=== PATIENT | male | born 1955 | race Caucasian/White ===

== ENCOUNTER 2024-02-28 11:08 | Inpatient (IN) ==
[2024-02-28 11:58] LABS: Basophils # (auto) 0.08 K/uL (0.00-0.20); Eosinophils # (auto) 0.16 K/uL (0.00-0.50); Hematocrit (blood only) 41.4 % (42.0-52.0); Hemoglobin 14.9 g/dl (14.0-18.0); Immature Granulocytes # (auto) 0.04 K/uL (0.01-0.20); Immature Granulocytes % (auto) 0.5 %; Lymphocytes # (auto) 1.93 K/uL (1.20-3.40); Lymphocytes % (auto) 24.5 %; Mean Corpuscular Hemoglobin 30.6 pg (25.0-34.0); Mean Platelet Volume 10.8 fL (9.4-12.4); Monocytes # (auto) 0.55 K/uL (0.11-0.59); Neutrophils # (auto) 5.13 K/uL (1.40-6.50); Platelet Count 228 K/uL (130-400); RDW Coefficient of Variation 12.1 % (11.5-14.5); RDW Standard Deviation 37.9 fL (36.4-46.3); Red Blood Count 4.87 M/uL (4.70-6.10); White Blood Count 7.89 K/ul (4.8-10.8)
--- NOTE | 2024-02-28 11:58 | Emergency Department Note ---
History of Present Illness General Chief complaint: Referred by Doctor Stated complaint: HYPERTENSION, BREATHING DIFFICULTY Time Seen by Provider: 02/28/24 11:39 Source: patient, family (Mother is at the bedside), RN notes reviewed and old records reviewed (05/05/19-ER visit for hand pain/injury) Mode of arrival: ambulatory Limitations: no limitations History of Present Illness This patient is a 68-year-old male who was sent from [facility] for cardiac workup. He said he has been having trouble sleeping where he feels like he wakes up and cannot get a deep breath like there is something he needs to cough out. Besides that he is feeling fine. He said that his blood pressure was mildly elevated the 150s there over 100s and he also had some trace lower extreme edema so they were worried about him and wanted a cardiac workup. He said no fall or trauma denies chest pain. No shortness of breath with exception of waking up in the middle night feeling like he needs to take a deep breath going on for couple weeks . no nausea or vomiting. no fever or chills. no blood or melena stool. No abdominal pain. no back pain .no urinary symptoms. Home Medications Medication Instructions Recorded Confirmed Type ibuprofen 200 mg tablet 400 mg PO Q6H PRN Pain 02/28/24 02/28/24 History Allergies Allergy/AdvReac Type Severity Reaction Status Date / Time No Known Allergies Allergy Mild Verified 12/01/15 10:49 Past Med/Surg History Problem List (Updated 03/02/24 @ 11:32 by Martín Najera MD) Hyperglycemia (Acute) Hypertension (Acute) Elevated brain natriuretic peptide (BNP) level (Acute) Elevated d-dimer (Acute) Elevated troponin I level (Acute) SOB (shortness of breath) (Acute) Calcification of coronary artery (Acute) CHF (congestive heart failure) (Acute) Cardiomyopathy LV dysfunction Coronary artery calcification HTN (hypertension) Acute heart failure with reduced ejection fraction (HFrEF, <= 40%) and combined systolic and diastolic dysfunction Tobacco use Orthopnea Pleural effusion Congestive heart failure Right knee DJD Medical History Diabetes mellitus, type II HTN (hypertension) Surgical History History of arthroplasty of knee History of hip replacement History of shoulder surgery Family History Other Prostate cancer Social History (Updated 02/28/24 @ 16:15 by Brooklyn Birmingham PA-C) Smoking Status: Never smoker Tobacco Type: Smokeless Tobacco (Dip or Chew) Hx Alcohol Use: No Hx Substance Use: No Preferred Language: Macanese Communication Ability: Effective Beliefs That Will Affect Care: None Current Living Situation: Alone Other Information That Helps Us Care for You: No Feels Safe at Home: Yes Assistive Devices: None Immunizations: Past medical history he says he is borderline diabetic and was on metformin in the past but ran out and has not been on it since. Denies history of cardiac disease pulmonary disease or blood clots. He has been on lisinopril in the past for blood pressure but stopped taking it as well Allergiesno known drug allergies Medicationnone Social history he lives locally. 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 Does not smoke, drink, or use drugs Review of Systems A total of 10 systems reviewed and were otherwise negative Physical Exam Vital Signs Vital Signs - 24 hr 02/28/24 11:14 02/28/24 13:00 02/28/24 14:11 Temperature 36.8 C Temperature Source Oral Pulse Rate 100 H 89 Pulse Rate [Finger] 92 H Pulse Rhythm Regular Pulse Rhythm [Finger] Regular Pulse Strength Normal Pulse Strength [Finger] Normal Respiratory Rate 18 18 Respiratory Effort / Characteristics Non-Labored Spontaneous Non-Labored Respiratory Depth Normal Normal Respiratory Pattern Regular Regular Blood Pressure 172/109 H Blood Pressure [Right Arm] 159/114 H Blood Pressure Mean 130 Blood Pressure Mean [Right Arm] 129 Blood Pressure Position Sitting Pulse Oximetry 96 98 Oxygen Delivery Method Room Air Room Air Sepsis Recent Fever Within 48 Hours No Sepsis New/Unexplained Change in Mental Status N/A Sepsis Action Taken by Nursing No Action Required General: Well developed well nourished [id number]-deanykhur middle-age male who appears in no acute distress, breathing comfortably on room air. Normal speech HEENT: Normal cephalic atraumatic. Pupils are equal round and reactive to light. Sclera are anicteric. Extraocular movements are intact. Oropharynx is pink with moist mucous membranes. No swelling of the mouth lips or tongue. Neck: Supple with a midline trachea. No meningeal signs or stiffness, no JVD or bruits. No Stridor. Chest: Clear to auscultation bilaterally. No wheezes or rhonchi. No increased work of breathing. Heart: Regular rate and rhythm without murmurs or gallops. Abdomen: Soft nontender, nondistended without rebound guarding or rigidity. Extremities: No cyanosis clubbing or edema. No calf tenderness or assymetry Spine/Back. Non tender to palpation. No CVA tenderness. Trace pedal edema Skin: Good turgor without rashes. Neurologic exam: Cranial nerves two through 12 are intact. Motor and sensation are intact and symmetrical throughout. Course Administered Medications Aspirin (Aspirin 81 Mg Ectab) 81 mg PO QAM [facility] Stop: 03/30/24 11:54 Last Admin: 03/02/24 10:02 Dose: Not Given Documented By: Admin: 03/01/24 08:04 Dose: 81 mg Documented By: Admin: 02/29/24 12:39 Dose: 81 mg Documented By: ADITI Enoxaparin Sodium (Enoxaparin Inj 40 Mg/0.4 Ml Syr) 40 mg SQ Q24H [facility] Stop: 03/29/24 17:59 Last Admin: 03/01/24 17:09 Dose: 40 mg Documented By: Admin: 02/29/24 17:45 Dose: 40 mg Documented By: Admin: 02/28/24 18:15 Dose: Not Given Documented By: ADITI Furosemide (Furosemide Inj 20 Mg/2 Ml Vial) 20 mg IV DAILY [facility] Stop: 03/30/24 08:59 Last Admin: 02/29/24 08:03 Dose: 20 mg Documented By: ADITI Insulin Aspart (Insulin Aspart Per Unit Charge) 0 units SC ACHS [facility] Stop: 03/29/24 17:32 Last Admin: 03/02/24 11:01 Dose: Not Given Documented By: Admin: 03/01/24 20:32 Dose: Not Given Documented By: Admin: 03/01/24 18:04 Dose: 4 units Documented By: ADITI Co-signed By: SANIYA Admin: 03/01/24 12:57 Dose: 7 units Documented By: ADITI Co-signed By: SANIYA Admin: 03/01/24 08:58 Dose: 12 units Documented By: ADITI Co-signed By: SANIYA Admin: 02/29/24 20:05 Dose: 1 units Documented By: JONATHAN Co-signed By: SOFIYA Admin: 02/29/24 17:45 Dose: 3 units Documented By: ADITI Co-signed By: SANIYA Admin: 02/29/24 13:07 Dose: 6 units Documented By: ADITI Co-signed By: SANIYA Admin: 02/29/24 09:16 Dose: 8 units Documented By: ADITI Co-signed By: SANIYA Admin: 02/28/24 20:35 Dose: 3 units Documented By: JOS Co-signed By: JONATHAN Admin: 02/28/24 18:03 Dose: 10 units Documented By: ADITI Co-signed By: KYLER Melatonin (Melatonin 3 Mg Tab) 3 mg PO HS PRN PRN Reason: Sleep Stop: 03/29/24 23:04 Last Admin: 03/01/24 22:04 Dose: 3 mg Documented By: Admin: 02/28/24 23:38 Dose: 3 mg Documented By: JOS Metoprolol Succinate (Metoprolol Succ 25mg Ext Rel Tab) 12.5 mg PO QPM [facility] Stop: 03/30/24 20:59 Last Admin: 03/01/24 20:34 Dose: 12.5 mg Documented By: Admin: 02/29/24 20:04 Dose: 12.5 mg Documented By: JONATHAN Oxycodone HCl (Oxycodone Hcl Ir 5 Mg Tab (Immediate Release)) 5 mg PO Q4H PRN PRN Reason: Pain Stop: 03/14/24 04:06 Last Admin: 03/01/24 22:04 Dose: 5 mg Documented By: Admin: 03/01/24 04:58 Dose: 5 mg Documented By: Admin: 02/29/24 20:05 Dose: 5 mg Documented By: Admin: 02/29/24 09:31 Dose: 5 mg Documented By: Admin: 02/29/24 04:20 Dose: 5 mg Documented By: JOS Polyethylene Glycol (Polyethylene (Miralax) 17 Gm Pack) 17 gm PO DAILY PRN PRN Reason: Constipation Stop: 03/29/24 17:32 Last Admin: 03/01/24 05:05 Dose: 17 gm Documented By: JONATHAN Rosuvastatin Calcium (Rosuvastatin Calcium 20 Mg Tab) 20 mg PO QAM [facility] Stop: 03/30/24 11:59 Last Admin: 03/02/24 10:41 Dose: 20 mg Documented By: Admin: 03/01/24 08:04 Dose: 20 mg Documented By: Admin: 02/29/24 12:39 Dose: 20 mg Documented By: ADITI Spironolactone (Spironolactone 12.5 Mg Tab) 12.5 mg PO DAILY [facility] Stop: 03/30/24 11:59 Last Admin: 03/02/24 10:41 Dose: 12.5 mg Documented By: Admin: 03/01/24 08:04 Dose: 12.5 mg Documented By: Admin: 02/29/24 12:39 Dose: 12.5 mg Documented By: ADITI Discontinued Medications Aspirin (Aspirin 81 Mg Chew) Confirm Administered Dose 81 mg .ROUTE .STK-MED ONE Stop: 03/02/24 08:24 Last Admin: 03/02/24 10:02 Dose: Not Given Documented By: ANUPAMA Fentanyl Citrate (Fentanyl Citrate Pf 100 Mcg/2 Ml Vial) Confirm Administered Dose 100 mcg .ROUTE .STK-MED ONE Stop: 03/02/24 07:01 Last Increment: 03/02/24 09:03 Dose: 75 mcg Documented By: GALLO Furosemide (Furosemide Inj 20 Mg/2 Ml Vial) 20 mg IV ONE ONE Stop: 02/28/24 14:19 Last Admin: 02/28/24 14:30 Dose: 20 mg Documented By: EL Heparin Sodium (Porcine) (Heparin (Porcine) 1000 Unit/Ml 10 Ml (Igniter Capper Use Only)) Confirm Administered Dose 10,000 units .ROUTE .STK-MED ONE Stop: 03/02/24 07:01 Last Admin: 03/02/24 09:03 Dose: 5,000 units Documented By: GALLO Heparin Sodium/Sodium Chloride (Heparin In Nss Infusion 1000 Unit/500 Ml (2 U/Ml) Bag) Confirm Administered Dose 3,000 units IV .STK-MED ONE Stop: 03/02/24 07:02 Last Admin: 03/02/24 09:04 Dose: 3,000 units Documented By: YAEL Magnesium Sulfate/Dextrose (Magnesium Sulfate / D5w) 1 gm in 100 mls @ 50 mls/hr IV ONE ONE Stop: 02/28/24 18:27 Last Infusion: 02/28/24 19:32 Dose: Infused Documented By: Admin: 02/28/24 16:40 Dose: 50 mls/hr Documented By: LETY Magnesium Sulfate/Dextrose (Magnesium Sulfate / D5w) 1 gm in 100 mls @ 50 mls/hr IV ONE ONE Stop: 02/29/24 05:14 Last Infusion: 02/29/24 05:52 Dose: Infused Documented By: Admin: 02/29/24 03:17 Dose: 50 mls/hr Documented By: JOS Insulin Aspart (Insulin Aspart Per Unit Charge) 0 units SC 0000,0400 [facility] Stop: 02/29/24 04:01 Last Admin: 02/29/24 04:02 Dose: 4 units Documented By: JOS Co-signed By: KAYLI Admin: 02/28/24 23:38 Dose: 2 units Documented By: JOS Co-signed By: SOFIYA Insulin Glargine (Lantus Per Unit Charge) 10 units SQ BID [facility] Stop: 03/29/24 20:59 Last Admin: 02/28/24 20:35 Dose: 10 units Documented By: JOS Co-signed By: JONATHAN [facility]ulin Glargine (Lantus Per Unit Charge) [facility] [place]: 03/30/24 08:59 Last Admin: 02/29/24 09:16 Dose: 20 units Documented By: ADITI Co-signed By: SANIYA Insulin Glargine (Lantus Per Unit Charge) 25 units SC QAM [facility] Stop: 03/31/24 08:59 Last Admin: 03/01/24 08:59 Dose: 25 units Documented By: ADITI Co-signed By: SANIYA Insulin Glargine (Lantus Per Unit Charge) 18 units SC 0800 ONE Stop: 03/02/24 08:01 Last Admin: 03/02/24 10:34 Dose: Not Given Documented By: ANUPAMA Insulin Glargine (Lantus Per Unit Charge) 18 units SC NOW STA Stop: 03/02/24 10:33 Last Admin: 03/02/24 11:04 Dose: Not Given Documented By: ANUPAMA Insulin Glargine (Lantus Per Unit Charge) 18 units SC NOW STA Stop: 03/02/24 11:02 Last Admin: 03/02/24 11:04 Dose: 18 units Documented By: ANUPAMA Co-signed By: DARNELL Ioversol (Optiray 320 125ml) 118 ml IV ONCE ONE Stop: 02/28/24 13:23 Last Admin: 02/28/24 13:23 Dose: 118 ml Documented By: SHAWN Ioversol (Optiray 350) Confirm Administered Dose 1 ml .ROUTE .STK-MED ONE Stop: 03/02/24 07:02 Last Admin: 03/02/24 09:04 Dose: 85 ml Documented By: YAEL Lisinopril (Lisinopril 10 Mg Tab) 10 mg PO NOW ONE Stop: 02/28/24 16:32 Last Admin: 02/28/24 18:19 Dose: 10 mg Documented By: ADITI Lisinopril (Lisinopril 10 Mg Tab) [facility] [place]: 03/30/24 08:59 Last Admin: 03/02/24 10:41 Dose: 10 mg Documented By: Admin: 03/01/24 08:04 Dose: 10 mg Documented By: Admin: 02/29/24 08:02 Dose: 10 mg Documented By: ADITI Metoprolol Tartrate (Metoprolol Tartrate 25 Mg Tab) 12.5 mg PO NOW STA Stop: 03/01/24 05:40 Last Admin: 03/01/24 06:12 Dose: 12.5 mg Documented By: JONATHAN Midazolam HCl (Midazolam Hcl 1 Mg/Ml 2ml Vial) Confirm Administered Dose 2 mg .ROUTE .STK-MED ONE Stop: 03/02/24 07:01 Last Admin: 03/02/24 09:04 Dose: 2 mg Documented By: GALLO Nicardipine HCl (Nicardipine Hcl Inj 2.5 Mg/Ml 10 Ml Amp) Confirm Administered Dose 25 mg .ROUTE .STK-MED ONE Stop: 03/02/24 07:01 Last Admin: 03/02/24 09:04 Dose: 25 mg Documented By: YAEL Nitroglycerin/Dextrose (Nitroglycerin/D5w 100mcg/Ml 20ml Syr) Confirm Administered Dose 2,000 mcg .ROUTE .STK-MED ONE Stop: 03/02/24 07:02 Last Admin: 03/02/24 09:05 Dose: 2,000 mcg Documented By: YAEL Potassium Chloride (Potassium Chloride Crtab 20 Meq Tabcr) 20 meq PO QAM [facility] Stop: 03/29/24 16:14 Last Admin: 02/28/24 16:17 Dose: 20 meq Documented By: LETY Potassium Chloride (Potassium Chloride Crtab 20 Meq Tabcr) 20 meq PO QAM [facility] Stop: 03/30/24 08:59 Last Admin: 02/29/24 08:02 Dose: 20 meq Documented By: ADITI Potassium Chloride (Potassium Chloride Crtab 20 Meq Tabcr) 20 meq PO NOW STA Stop: 02/29/24 03:11 Last Admin: 02/29/24 03:18 Dose: 20 meq Documented By: JOS Potassium Chloride (Potassium Chloride Crtab 20 Meq Tabcr) 20 meq PO QAM [facility] Stop: 03/31/24 05:39 Last Admin: 03/01/24 08:04 Dose: 20 meq Documented By: Admin: 03/01/24 06:12 Dose: 20 meq Documented By: JONATHAN Medical Decision Making Differential Diagnosis Acute coronary syndrome, arrhythmia, CHF, PE, pneumothorax, hypertensive urgency or emergency, diabetic emergency, dehydration, electrolyte or metabolic abnormality Medical Records Attestation: I reviewed the patient's medical records. Home Medications Current Medication List: was personally reviewed by me Laboratory Data Attestation: I reviewed the patient's lab results. 03/01/24 05:27 03/02/24 06:18 Lab Results 02/28/24 02/28/24 02/28/24 Range/Units 11:31 12:15 13:14 WBC 7.89 (4.8-10.8) K/ul RBC 4.87 (4.70-6.10) M/uL Hgb 14.9 (14.0-18.0) g/dl Hct 41.4 L (42.0-52.0) % MCV 85.0 (80.0-100.0) fL MCH 30.6 (25.0-34.0) pg MCHC 36.0 (32.0-36.0) g/dL RDW Std Deviation 37.9 (36.4-46.3) fL RDW Coeff of Barney 12.1 (11.5-14.5) % Plt Count 228 (130-400) K/uL MPV 10.8 (9.4-12.4) fL Immature Gran % (Auto) 0.5 % Neut % (Auto) 65.0 % Lymph % (Auto) 24.5 % Taney % (Auto) 7.0 % Eos % (Auto) 2.0 % Baso % (Auto) 1.0 % Neut # (Auto) 5.13 (1.40-6.50) K/uL Lymph # (Auto) 1.93 (1.20-3.40) K/uL Taney # (Auto) 0.55 (0.11-0.59) K/uL Eos # (Auto) 0.16 (0.00-0.50) K/uL Baso # (Auto) 0.08 (0.00-0.20) K/uL Immature Gran # (Auto) 0.04 (0.01-0.20) K/uL D-Dimer 520 H* (0-500) ug/L FEU Sodium 133 L (136-145) mmol/L Potassium 4.3 (3.5-5.1) mmol/L Chloride 98 (98-107) mmol/L Carbon Dioxide 28 (21-32) mmol/L Anion Gap 7 (3-11) BUN 12 (6-23) mg/dl Creatinine 1.00 (0.6-1.4) mg/dl Est Cr Clr Drug Dosing 75.3 ml/min eGFR 81.98 BUN/Creatinine Ratio 12.0 (10-20) Glucose 397 H* (70-99(Fasting)) mg/dl Calcium 9.5 (8.6-10.3) mg/dl Magnesium 1.7 (1.7-2.4) mg/dl Total Bilirubin 0.8 (0.2-1.0) mg/dl AST 30 (13-39) U/L ALT 43 (7-52) U/L Alkaline Phosphatase 53 (34-104) U/L Troponin I High Sens 37.7 H 35.8 H (0-20) pg/ml B-Natriuretic Peptide 875 H (0-100) pg/ml Total Protein 7.1 (6.0-8.3) gm/dl Albumin 4.4 (3.4-5.0) gm/dl Globulin 2.7 (2.5-4.0) gm/dl Albumin/Globulin Ratio 1.6 (0.9-2) Urine Color Yellow Urine Appearance Clear (Clear) Urine pH 5.5 (4.5-7.5) Ur Specific Globe 1.039 H (1.000-1.030) Urine Protein 1+ H (Negative) Urine Glucose (UA) 3+ H (Negative) Urine Ketones Negative (Negative) Urine Blood Negative (Negative) Urine Nitrite Negative (Negative) Urine Bilirubin Negative (Negative) Urine Urobilinogen Negative (Negative) Ur Leukocyte Esterase Negative (Negative) Urine WBC (Auto) 0-5 (0-5) /hpf Urine RBC (Auto) 0-2 (0-2) /hpf U Hyaline Cast (Auto) 0-2 (0-2) /lpf U Epithel Cells (Auto) 0-2 (0-2) /hpf Urine Bacteria (Auto) None Seen (None Seen) Imaging Data Attestation: I personally reviewed and interpreted this imaging study as follows: My Impression: Chest x-ray-no acute infiltrate, failure, pneumothorax seen Radiologist's Impression: Chest X-Ray 02/28/24 11:21 SINGLE VIEW CHEST CLINICAL HISTORY: Dyspnea FINDINGS: A PA chest radiograph is compared to study dated 11/08/2015. The cardiomediastinal silhouette is top normal for projection noting atherosclerotic calcification of the thoracic aorta. The lungs and pleural spaces are clear. No pneumothorax is seen. The bony thorax is grossly intact. Degenerative change is noted in the shoulders and spine. IMPRESSION: No active disease in the chest. ACT 112: Negative or not required by law. Electronically signed by: Jay House M.D. 02/28/2024 1:03 PM Chest CTA 02/28/24 12:46 CT ANGIOGRAPHY OF THE CHEST, PULMONARY EMBOLUS PROTOCOL CLINICAL HISTORY: Dyspnea. Evaluate for pulmonary embolus. COMPARISON STUDY: Chest radiograph November 08, 2015 and chest radiograph performed earlier today. TECHNIQUE: Following IV administration of 118 mL of Optiray, helical axial images of the chest were obtained utilizing the pulmonary embolus protocol. Maximal intensity projections and sagittal and coronal reformats were viewed on an independent 3D workstation. IV contrast was administered without complication. Automated exposure control was utilized for the study. A dose lowering technique was utilized adhering to the principles of ALARA. CT DOSE: 777.47 mGy.cm FINDINGS: No pulmonary emboli are identified. The heart is mildly enlarged. There is moderate coronary artery calcification. No pericardial effusion. There are small bilateral pleural effusions. There is no pneumothorax. Interlobular septal thickening is present. There is no consolidation to suggest pneumonia. There are no suspicious nodules. Several hypodense hepatic lesions favor cysts. There are gallstones within the gallbladder. There are prominent mediastinal and bilateral hilar lymph nodes. IMPRESSION: 1. No pulmonary emboli identified. 2. Cardiomegaly with mild interstitial pulmonary edema and small bilateral pleural effusions. 3. No consolidation to suggest pneumonia. 4. Moderate coronary artery calcification. ACT 112: Negative or not required by law. Electronically signed by: Kishor Hensley M.D. 02/28/2024 2:01 PM ECG Data Attestation: I personally reviewed and interpreted this ECG as follows: Indication: + chest pain Rate (beats per minute): 98 Rhythm: + normal sinus ECG Intervals/blocks: + Incomplete right bundle branch block, + Normal QT and + Normal NH ECG [place]: + Normal ECG ST segments: + Normal ST segments ECG Findings: + Other (Nonspecific T wave abnormality); no PACs or no PVCs Comparison ECG Date: from (03/23/2020) Change: no significant change MDM Narrative This patient comes in as described above. I did see him out in triage to help expedite his care. Sent over cardiac workup his EKG shows no definite ischemic changes. He has some nonspecific T wave abnormalities no old EKG available for comparison. His blood pressure was elevated initially 172/109 sounds like he does have history of hypertension but is no longer on any medications. Chest x- ray and multiple blood testing was obtained as well as urinalysis and a D-dimer. His D-dimer was mildly elevated at [address] angiography was obtained there is no evidence of PE however it does look like he is fluid overloaded and has cardiac calcifications and I am worried about a CHF component particularly in light of the fact that his BNP and troponin are also elevated. He has no chest pain and is asymptomatic at present. The second troponin was trended and was not going upward but I do think the patient likely has a CHF component he was given IV Lasix. This apparently is new onset CHF. he also has hypertension and hyperglycemia but has stopped taking his medications in the past for these. He has no evidence discussed DKA. I do think he needs to get restarted back on these medications and have further cardiac evaluation including echo in the hospital. I have consulted the [facility] hospitalist team for these measures. The patient is family are in agreement the plan. Continuous service station attendant: Orders placed in EMR for continuous service station attendant: Upon my evaluation patient to be normal sinus rhythm with a rate of 70 Impression & Plan CHF (congestive heart failure), Calcification of coronary artery, SOB (shortness of breath), Elevated troponin I level, Elevated d-dimer, Elevated brain natriuretic peptide (BNP) level, Hypertension, Hyperglycemia Discharge Plan Visit Data Chief Complaint: Referred by Doctor Stated Complaint: HYPERTENSION, BREATHING DIFFICULTY ED Provider: Martín Najera Discharge Problem: CHF (congestive heart failure), Calcification of coronary artery, SOB (shortness of breath), Elevated troponin I level, Elevated d-dimer, Elevated brain natriuretic peptide (BNP) level, Hypertension, Hyperglycemia Patient Disposition: Admitted As Inpatient Discharge Instructions Interventions: ED Discharge Assessment Last Done: 02/28/24 17:13 Discharge Problem: CHF (congestive heart failure) Qualifiers: Heart failure type: systolic Heart failure chronicity: acute Qualified Code(s): I50.21 - Acute systolic (congestive) heart failure Hypertension Qualifiers: Hypertension type: unspecified Qualified Code(s): I10 - Essential (primary) hypertension
[2024-02-28 12:10] LABS: Albumin Globulin Ratio 1.6 (0.9-2); Albumin Level 4.4 gm/dl (3.4-5.0); Bilirubin,Total 0.8 mg/dl (0.2-1.0); Calcium 9.5 mg/dl (8.6-10.3); Creatinine Clr Calc Pharmacy 75.3 ml/min; Globulin 2.7 gm/dl (2.5-4.0); Potassium 4.3 mmol/L (3.5-5.1); Total Protein 7.1 gm/dl (6.0-8.3)
[2024-02-28 12:34] LABS: Troponin I High Sensitivity 37.7 pg/ml (0-20)
[2024-02-28 12:42] LABS: Appearance Urine Clear (Clear); Bacteria Urine Automated None Seen (None Seen); Bilirubin Urine Negative (Negative); Blood Urine Negative (Negative); Cast Urine Automated 0-2 /lpf (0-2); Color Urine Yellow; Epithelial Cell Urine Auto 0-2 /hpf (0-2); Glucose Urine UA 3+ (Negative); Ketones Urine Negative (Negative); Leukocyte Esterase Urine Negative (Negative); Nitrite Urine Negative (Negative); Protein Urine 1+ (Negative); RBC Urine Automated 0-2 /hpf (0-2); Specific Gravity Urine 1.039 (1.000-1.030); Urobilinogen Urine Negative (Negative); WBC Urine Automated 0-5 /hpf (0-5); pH Urine 5.5 (4.5-7.5)
[2024-02-28 12:45] LABS: D Dimer 520 ug/L FEU (0-500)
--- NOTE | 2024-02-28 13:04 | XRay Report ---
SINGLE VIEW CHEST CLINICAL HISTORY: Dyspnea FINDINGS: A PA chest radiograph is compared to study dated 11/08/2015. The cardiomediastinal silhouett e is top normal for projection noting atherosclerotic calcification of the thoracic aorta. The lungs and pleural spaces are clear. No pneumothorax is seen. The bony thorax is grossly intact. Degenerativ e change is noted in the shoulders and spine. IMPRESSION: No active disease in the chest. ACT 112: Negative or not required by law. Electronically signed by: Jay House M.D. 02/28/2024 1:03 PM
[2024-02-28] MEDS: OPTIRAY 320 125ml IV ONE (13:23)
[2024-02-28 13:55] LABS: Troponin I High Sensitivity 35.8 pg/ml (0-20)
--- NOTE | 2024-02-28 14:03 | CT Scan Report ---
CT ANGIOGRAPHY OF THE CHEST, PULMONARY EMBOLUS PROTOCOL CLINICAL HISTORY: Dyspnea. Evaluate for pulmonary embolus. COMPARISON STUDY: Chest radiograph November 08, 2015 and chest radiograph performed earlier today. TECHNIQUE: Following IV administration of 118 mL of Optiray, helical axial images of the chest were o btained utilizing the pulmonary embolus protocol. Maximal intensity projections and sagittal and cor onal reformats were viewed on an independent 3D workstation. IV contrast was administered without co mplication. Automated exposure control was utilized for the study. A dose lowering technique was ut ilized adhering to the principles of ALARA. CT DOSE: 777.47 mGy.cm FINDINGS: No pulmonary emboli are identified. The heart is mildly enlarged. There is moderate sagastume ry artery calcification. No pericardial effusion. There are small bilateral pleural effusions. There is no pneumothorax. Interlobular septal thickening is present. There is no consolidation to suggest p neumonia. There are no suspicious nodules. Several hypodense hepatic lesions favor cysts. There are g allstones within the gallbladder. There are prominent mediastinal and bilateral hilar lymph nodes. IMPRESSION: 1. No pulmonary emboli identified. 2. Cardiomegaly with mild interstitial pulmonary edema and small bilateral pleural effusions. 3. No consolidation to suggest pneumonia. 4. Moderate coronary artery calcification. ACT 112: Negative or not required by law. Electronically signed by: Kishor Hensley M.D. 02/28/2024 2:01 PM
--- NOTE | 2024-02-28 14:28 | History & Physical Report ---
Date of Service February 28, 2024 Assessment & Plan (1) Congestive heart failure: (2) Orthopnea: (3) Pleural effusion: Plan: Patient is 68 year old male with PMH untreated HTN and DM II presented to ER for orthopnea x 2-3 weeks. In ER patient afebrile, P: 100, R: 18, BP 172/109, 96% on room air D-dimer: 520, BNP: 875 Troponin: 37 --> 35 EKG sinus rhythm incomplete bundle branch block, nonspecific t wave changes inferior leads per my interpretation CXR: no infiltrate noted per my interpretation CTA chest: No pulmonary emboli identified. Cardiomegaly with mild interstitial pulmonary edema and small bilateral pleural effusions.. No consolidation to suggest pneumonia. Moderate coronary artery calcification. In ER given 20 mg IV Lasix. Patient has since been diuresing. First urination not measured, second urination nearly 700 mL urine output Since IV Lasix given and is diuresing patient now reporting feeling much better and is able to lie nearly supine without orthopnea Plan Lasix 20 mg IV daily with patient's brisk response in ER Monitor I's and O's, daily weight, low-sodium diet Echo Trend troponin EKG in am CBC, BMP, magnesium level in a.m. 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 See addendum I spent a total of 76 minutes reviewing notes, outpatient records, labs, medication, coordinating, documenting and providing care for this patient excluding time spent in the performance of separately billed services. History of Present Illness Chief Complaint: Referred by PCP for orthopnea Primary Care Provider: Mayi Jovel MD Patient is 68 year old male with PMH untreated HTN and DM II presented to ER for orthopnea x 2-3 weeks. History obtained from patint and outpatient chart review. Patient reports past 2-3 weeks been having orthopnea and PND. States sometimes wakes up from sleep with nonproductive cough as well. He noted very slight edema BLE. Denies dyspnea or CP or exertional CP. Has not followed with PCP for many years and has been without medications. Previously was on metformin and lisinopril. Patient reestablished with [facility] PCP today and was evaluated in clinic and was noted to have BP 158/112, P: 98, 97% on room air and was recommended ER for further evaluation. States sometimes will have one loose BM but is not consistent. Reports chronic shoulder, back and knee pain and uses OTC ibuprofen 3-5 days a week using 2-3 doses a day. Denies fever/chills, diaphoresis, N/V/C, melena, CLARKE, dizziness, syncope, vision changes, neck pain, CP, palpitations, cough, sore throat, otalgia, rhinorrhea, abdominal pain, paresthesias, weakness, rashes, urinary symptoms. Allergies Allergy/AdvReac Type Severity Reaction Status Date / Time No Known Allergies Allergy Mild Verified 12/01/15 10:49 Home Medications Medication Instructions Recorded Confirmed Type ibuprofen 200 mg tablet 400 mg PO Q6H PRN Pain 02/28/24 02/28/24 History Past Med/Surg History Problem List Tobacco use Orthopnea Pleural effusion Congestive heart failure Right knee DJD Medical History Diabetes mellitus, type II HTN (hypertension) Surgical History History of arthroplasty of knee History of hip replacement History of shoulder surgery Family History Other Prostate cancer Social History (Updated 02/28/24 @ 16:15 by Brooklyn Birmingham PA-C) Smoking Status: Never smoker Tobacco Type: Smokeless Tobacco (Dip or Chew) Hx Alcohol Use: No Hx Substance Use: No Preferred Language: Bulgarian Communication Ability: Effective Beliefs That Will Affect Care: None Current Living Situation: Alone Other Information That Helps Us Care for You: No Feels Safe at Home: Yes Assistive Devices: None Review of Systems Review of Systems: All systems reviewed & are unremarkable except as noted in HPI & below Physical Exam Physical Exam: General: no distress, WDWN Head: normocephalic, atraumatic Eyes: conjunctiva non-injected, anicteric ENT: normal inspection external ears, nose, mucous membranes moist Neck: supple, trachea midline, non-tender Lungs: no respiratory distress, 97% on RA, slightly diminished bases bilaterally, no wheezing/rhonchi/rales CV: RRR, no murmur, trace pretibial edema Abd: normal BS, soft, non-tender Ext: no cyanosis, no calf tenderness Neuro: A&O x 3, no focal deficits noted, normal affect Skin: warm, dry Results & Data Results & Data Vital Signs (Past 12 Hours) Vital Signs Temp Pulse Pulse Resp BP BP Pulse Ox 02/28/24 14:11 89 02/28/24 13:00 92 H 18 159/114 H 98 02/28/24 11:14 36.8 C 100 H 18 172/109 H 96 O2 Del Method 02/28/24 14:11 02/28/24 13:00 Room Air 02/28/24 11:14 Room Air Laboratory Results Short CBC 02/28/24 Range/Units 11:31 WBC 7.89 (4.8-10.8) K/ul Hgb 14.9 (14.0-18.0) g/dl Hct 41.4 L (42.0-52.0) % Plt Count 228 (130-400) K/uL BMP 02/28/24 11:31 Sodium 133 L Potassium 4.3 Chloride 98 Carbon Dioxide 28 BUN 12 Creatinine 1.00 Glucose 397 H* Calcium 9.5 Liver Function 02/28/24 Range/Units 11:31 Total Bilirubin 0.8 (0.2-1.0) mg/dl AST 30 (13-39) U/L ALT 43 (7-52) U/L Alkaline Phosphatase 53 (34-104) U/L Albumin 4.4 (3.4-5.0) gm/dl Urine 02/28/24 Range/Units 12:15 Urine Color Yellow Urine Appearance Clear (Clear) Urine pH 5.5 (4.5-7.5) Ur Specific [place] 1.039 H (1.000-1.030) Urine Protein 1+ H (Negative) Urine Glucose (UA) 3+ H (Negative) Diagnostic Findings Chest X-Ray 02/28/24 11:21 SINGLE VIEW CHEST CLINICAL HISTORY: Dyspnea FINDINGS: A PA chest radiograph is compared to study dated 11/08/2015. The cardiomediastinal silhouette is top normal for projection noting atherosclerotic calcification of the thoracic aorta. The lungs and pleural spaces are clear. No pneumothorax is seen. The bony thorax is grossly intact. Degenerative change is noted in the shoulders and spine. IMPRESSION: No active disease in the chest. ACT 112: Negative or not required by law. Electronically signed by: Jay House M.D. 02/28/2024 1:03 PM Chest CTA 02/28/24 12:46 CT ANGIOGRAPHY OF THE CHEST, PULMONARY EMBOLUS PROTOCOL CLINICAL HISTORY: Dyspnea. Evaluate for pulmonary embolus. COMPARISON STUDY: Chest radiograph November 08, 2015 and chest radiograph performed earlier today. TECHNIQUE: Following IV administration of 118 mL of Optiray, helical axial images of the chest were obtained utilizing the pulmonary embolus protocol. Maximal intensity projections and sagittal and coronal reformats were viewed on an independent 3D workstation. IV contrast was administered without complication. Automated exposure control was utilized for the study. A dose lowering technique was utilized adhering to the principles of ALARA. CT DOSE: 777.47 mGy.cm FINDINGS: No pulmonary emboli are identified. The heart is mildly enlarged. There is moderate coronary artery calcification. No pericardial effusion. There are small bilateral pleural effusions. There is no pneumothorax. Interlobular septal thickening is present. There is no consolidation to suggest pneumonia. There are no suspicious nodules. Several hypodense hepatic lesions favor cysts. There are gallstones within the gallbladder. There are prominent mediastinal and bilateral hilar lymph nodes. IMPRESSION: 1. No pulmonary emboli identified. 2. Cardiomegaly with mild interstitial pulmonary edema and small bilateral pleural effusions. 3. No consolidation to suggest pneumonia. 4. Moderate coronary artery calcification. ACT 112: Negative or not required by law. Electronically signed by: Kishor Hensley M.D. 02/28/2024 2:01 PM Supervising Physician Co-Signing Physician Notes Attending Addendum: Case reviewed with the advanced practitioner. I have personally performed a history and physical examination on the patient. I have reviewed the advanced practitioner's documentation on the date of service referenced in note, and I agree with, and take responsibility for the plan of care. please refer to her notes for full details patient seen and examined, records reviewed by myself as well on exam, patient seen resting in bed, not in distress states breathing has improved no chest pain, cough, dizziness reports R upper leg cramp no other symptoms VS noted and reviewed oriented x 3, not in distress, speaks in sentences with no effort nor accessory muscle use normal rate, regular rhythm, no murmurs clear breath sounds bilaterally non distended, soft, nontender no bipedal edema, erythema, warmth no neuro deficits all labs, imaging noted and reviewed ASSESSMENT AND PLAN> SHORTNESS OF BREATH, PULMONARY EDEMA POSSIBLE ACUTE CONGESTIVE HEART FAILURE EXACERBATION no previous history of CHF Lasix IV ordered Echo ordered UNCONTROLLED HYPERTENSION was on Lisinopril previously, but has been taken off few years ago resume Lisinopril for now monitor other diagnoses and plan of care as per advanced practitioner's notes Jase Springer MD
[2024-02-28] MEDS: FUROSEMIDE INJ 20 MG/2 ML VIAL IV ONE (14:30)
[2024-02-28 16:02] LABS: Magnesium 1.7 mg/dl (1.7-2.4)
[2024-02-28] MEDS: POTASSIUM CHLORIDE CRTAB 20 MEQ TABCR PO SCH (16:17)
[2024-02-28] MEDS: MAGNESIUM SULFATE / D5W 1 GM/100 ML BAG IV ONE (16:40)
[2024-02-28] MEDS ORDERED: PHARMACY GLYCEMIC MGMT CONSULT PRN (17:33)
[2024-02-28] MEDS ORDERED: ACETAMINOPHEN 325 MG TAB PO PRN (17:33)
[2024-02-28] MEDS ORDERED: GLUCOSE 40% GEL 15 GM TUBE PO PRN (17:33)
[2024-02-28] MEDS ORDERED: DEXTROSE 50% 50 ML SYRINGE IV PRN (17:33)
[2024-02-28] MEDS ORDERED: GLUCOSE 10 TAB/TUBE PO PRN (17:33)
[2024-02-28] MEDS ORDERED: GLUCAGON FOR INJ 1 MG VIAL SQ PRN (17:33)
[2024-02-28] MEDS ORDERED: CARBOHYDRATES FOR HYPOGLYCEMIA PO PRN (17:33)
[2024-02-28] MEDS ORDERED: ONDANSETRON INJ 2 MG/ML 2 ML VIAL IV PRN (17:33)
[2024-02-28] MEDS: INSULIN ASPART PER UNIT CHARGE SC SCH ×2 (18:03→23:38)
[2024-02-28] MEDS: ENOXAPARIN INJ 40 MG/0.4 ML SYR SQ SCH (18:15)
[2024-02-28] MEDS: lisinopril 10 MG TAB PO ONE (18:19)
--- NOTE | 2024-02-28 18:41 | Electrocardiogram Report ---
Test Reason : Blood Pressure : */* mmHG Vent. Rate : 98 BPM Atrial Rate : 98 BPM P-R Int : 178 ms QRS Dur : 106 ms QT Int : 382 ms P-R-T Axes : -14 -5 -4 degrees QTcB Int : 487 ms Normal sinus rhythm Nonspecific T wave abnormality Abnormal ECG When compared with ECG of 23-Jun-2019 08:18, Premature ventricular complexes are no longer Present Confirmed by Uriel Brown ([id number]) on 02/28/2024 6:40:48 PM Referred By: Confirmed By: Uriel Brown
[2024-02-28] MEDS: LANTUS PER UNIT CHARGE SQ SCH (20:35)
[2024-02-28] MEDS: MELATONIN 3 MG TAB PO PRN (23:38)
[2024-02-29 01:52] LABS: Basophils # (auto) 0.09 K/uL (0.00-0.20); Basophils % (auto) 1.1 %; Eosinophils # (auto) 0.22 K/uL (0.00-0.50); Eosinophils % (auto) 2.7 %; Hematocrit (blood only) 41.3 % (42.0-52.0); Hemoglobin 14.4 g/dl (14.0-18.0); Immature Granulocytes # (auto) 0.02 K/uL (0.01-0.20); Immature Granulocytes % (auto) 0.2 %; Lymphocytes # (auto) 2.33 K/uL (1.20-3.40); Mean Corpuscular Hemoglobin 30.1 pg (25.0-34.0); Mean Corpuscular Hgb Conc 34.9 g/dL (32.0-36.0); Mean Corpuscular Volume 86.2 fL (80.0-100.0); Mean Platelet Volume 10.4 fL (9.4-12.4); Monocytes # (auto) 0.56 K/uL (0.11-0.59); Neutrophils # (auto) 4.81 K/uL (1.40-6.50); Platelet Count 223 K/uL (130-400); RDW Coefficient of Variation 12.1 % (11.5-14.5); RDW Standard Deviation 38.3 fL (36.4-46.3); Red Blood Count 4.79 M/uL (4.70-6.10); White Blood Count 8.03 K/ul (4.8-10.8)
[2024-02-29 02:10] LABS: BUN Creatinine Ratio 14.3 (10-20); Calcium 8.9 mg/dl (8.6-10.3); Creatinine Clr Calc Pharmacy 71.7 ml/min; Magnesium 1.9 mg/dl (1.7-2.4); Potassium 3.9 mmol/L (3.5-5.1)
[2024-02-29] MEDS: MAGNESIUM SULFATE / D5W 1 GM/100 ML BAG IV ONE (03:17)
[2024-02-29] MEDS: POTASSIUM CHLORIDE CRTAB 20 MEQ TABCR PO STA (03:18)
--- OUTSIDE RECORDS SUMMARY | 2024-02-29 03:27 | External Medical Summary | Summary of Care ---
Author Name Unknown Organization [facility] Address [address] [facility] [place] [address] Phone [phone] Care Team Providers Care Business Process Expert Name Role Phone Unavailable Primary Care Provider Unavailabl e Reason for Visit * Reason Comments Acute Congestion Encounter Details Date Type Department Care Team (Late st Contact Info) Description 02/28/2024 9:40 AM EDT Office Visit General Internal Medicine [place] [address] [facility] [place] [address] Mayi Jovel MD [address] [facility] [place] [id number] Chest congestion*; FERGUSON (dyspnea on exertion); Hypertensive urgency; Abnormal EKG Allergies Active Allergy Reactions Criticality Noted Date Comments No Known Drug Allergy 04/19/2004 documented as of this encounter (statuses as of 02/28/2024) Medications Medication Sig Dispensed Refills Start Date End Date Status Multiple Vitamins-Minerals (ULTRA MENS PACK) MISC Take 2 Tabs by mouth daily. Active Mag Aspart-Potassium Aspart (RA POTASSIUM/MAGNESIUM ) 250-250 MG CAPSIndications:OTC takes as needed when feels muscles might cramp after alot of sweating. Take 2 Tabs by mouth daily. Indications: OTC takes as needed when feels muscles might cramp after alot of sweating. Active Gymnema Sylvestris [place] POWD Use as directed. Active Glucosamine-Chondro it-Vit C-Mn (GLUCOSAMINE CHONDR 500 COMPLEX) Capsule Take 1 Capsule by mouth in the morning. Active celecoxib (CELEBREX) 200 MG Capsule TAKE ONE CAPSULE BY MOUTH EVERY DAY 90 Cap 1 06/02/2018 02/28/2024 Discontinued (Patient preference/d iscontinuati on) lisinopril (PRINIVIL) 10 MG TabletIndications:E ssential hypertension with goal blood pressure less than 140/90 TAKE ONE TABLET BY MOUTH EVERY DAY 90 Tab 3 06/17/2018 02/28/2024 Discontinued (Patient preference/d iscontinuati on) MetFORMIN (GLUCOPHAGE) 1000 MG Tablet TAKE ONE TABLET BY MOUTH TWICE A DAY WITH MORNING AND EVENING MEALS 180 Tab 3 06/17/2018 02/28/2024 Discontinued (Patient preference/d iscontinuati on) documented as of this encounter (statuses as of 02/28/2024) Active Problems Problem Noted Date Diagnosed Date Type 2 diabetes mellitus wit h hemoglobin A1c goal of less than 7.0% 11/09/2015 Essential hypertension with goal blood pressure less than 140/90 11/09/2015 OBESITY, BMI 30-34 (SEE ACTUAL BMI) 08/18/2009 Overview: Per Obesity Taxonomy documented as of this encounter (statuses as of 02/28/2024) Resolved Problems Problem Noted Date Diagnosed Date Resolved Date Elevated blood pressure, situational 05/17/2015 11/09/2015 MEDICATION USE AGREEMENT 12/22/201309/2017 Overweight (BMI 25.0-29.9) 03/22/2008 0 08/18/2009 Overview: Per Obesity Taxonomy Malaise and fatigue 03/22/2008 04/23/20 17 Anemia 03/22/2008 04/23/2017 HYPOKALEMIA 03/22/2008 04/23/2017 Fever 03/22/2008 04/23/2017 Rigors 03/22/2008 04/23/2017 Overview: RESOLVED Need for influenza vaccination 03/22/2008 10/29/2017 documented as of this encounter (statuses as of 02/28/2024) Immunizations Name Administration Dates Next Due TDAP (age 10 and older)(Boostrix) 05/17/2015 documented as of this encounter Social History Tobacco Use Types Packs/Day Years Used Date Smoking Tobacco: Never Smokeless Tobacco: Current Snuff Alcohol Use Standard Drinks/Week Comments Yes 0 (1 standard drink = 0.6 oz pur e alcohol) rare PHQ-2 Answer Date Recorded PHQ-2 Score 0 03/30/2018 Utilities Answer Date Recorded Do you have trouble paying y our heating, water, or electric bill? (Adult - for ages 18 years and over) Not on file 11/12/2023 Is your family able to pay t he heat, water, or electric bill? (Household - for ages 0-17 years) Not on file 11/12/2023 Does your family have access to good internet? (Household - for ages 0-17 years) Not on file 11/12/2023 Social Connections Answer Date Recorded How often do you feel lonely or isolated from those around you? (Adult - for ages 18 years and over) Not on file 11/12/2023 Sex and Gender Information Value Date Recorded Sex Assigned at Not on file Gender Identity Not on file Sexual Orientation Not on file Job Start Date Occupation Industry Not on file Not on file Not on file documented as of this encounter Last Filed Vital Signs Vital Sign Reading Time Taken Comments Blood Pressure 160/114 02/28/2024 10:43 AM EDT Pulse 98 02/28/2024 10:07 AM EDT Temperature 36.2 C (97.1 F) 02/28/2024 10:07 AM E DT Respiratory Rate - - Oxygen Saturation 97% 02/28/2024 10:07 AM EDT Inhaled Oxygen Concentration - - Weight 89.6 kg (197 lb 9.6 oz) 02/28/2024 10:07 AM EDT Height - - Body Mass Index 27.56 05/15/2019 4:38 PM EST documented in this encounter Functional Status Functional Status Response Date of Assess ment Are you deaf or do you have serious difficulty h earing? No 05/06/2017 Are you blind or do you have serious difficulty seeing, even when wearing glasses? No 05/06/2017 Do you have serious difficul ty walking or climbing stairs? (5 years old or older) No 05/06/2017 Do you have difficulty dress ing or bathing? (5 years old or older) No 05/06/2017 Because of a physical, menta l, or emotional condition, do you have difficulty doing errands alone such as visiting a doctor s office or shopping? (15 years old or older) No 05/06/20 17 Cognitive Status Response Date of Assessm ent Because of a physical, menta l, or emotional condition, do you have serious difficulty concentrating, remembering, or making decisions? (5 years old or older) No 05/06/2017 documented as of this encounter Progress Notes * Jyothi Chowdary CMA - 02/28/2024 10:45 AM EDT ekg done as per dr's order * Mayi Jovel MD - 02/28/2024 10:23 AM EDT SUBJECTIVE: Costa Allen is a 68 year old male. No chief complaint on file. Nursing Notes: Hyacinth Leigh, Student 02/28/24 1013 Signed Patient complaining of chest congestion. He said that sometimes it makes him cough and it has been lasting about a month. HPI: patient presents today for acute appointment with 2-3 week onset of symptoms. States some he feels he has a congestion in the mid upper chest area, not able to expectorate any phlegm. No fever or chills, admits to feeling that he can not take a deep breath especially when he lays down within afew minutes And feels he has a wheeze He has also noticed some dyspnea on exertion today. No precordial chest pain or diaphoresis or palpitations. States he did noticed some mild swelling of his legsmainly around his socks today. 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 History of high blood pressure in the past, has been off medications for many years and last saw PCP at [facility] in 11/13/2017. States he did have some teeth removed recently and needs to have implants done Patient Active Problem List Diagnosis OBESITY, BMI 30-34 (SEE ACTUAL BMI) Type 2 diabetes mellitus with hemoglobin A1c goal of less than 7.0% (HCC) Essential hypertension with goal blood pressure less than 140/90 Current Outpatient Medications Medication Sig Dispense Refill Multiple Vitamins-Minerals (ULTRA MENS PACK) MISC Take 2 Tabs by mouth daily. Mag Aspart-Potassium Aspart (RA POTASSIUM/MAGNESIUM) 250-250 MG CAPS Take 2 Tabs by mouth daily. Indications: OTC takes as needed when feels muscles might cramp after alot of sweating. Gymnema Sylvestris [place] POWD Use as directed. Binplkmwwip-Bsdduzyig-Kyz C-Mn (GLUCOSAMINE CHONDR 500 COMPLEX) Capsule Take 1 Capsule by mouth in the morning. No current facility-administered medications for this visit. Review of patient's allergies indicates: Allergen Reactions No Known Drug Allergy OBJECTIVE: BP (!) 158/112 | Pulse 98 | Temp 36.2 C (97.1 F) (Tympanic) | Wt 89.6 kg (197 lb 9.6 oz) | VrK013% | BMI 27.56 kg/m | BSA 2.12 m PHYSICAL EXAM: General: alert, healthy, no distress, well nourished and well developed OP-no exudate/pnd/erythema Neck: supple, no adenopathy Heart: regular Rhythm and rate, no murmurs Lungs: lungs clear to auscultation Ext-trace edema Rpt bp by nurse 160/114 ASSESSMENT/PLAN: Chest congestion (Primary) - EKG; Future; Expected date: 02/28/2024 - EKG FERGUSON (dyspnea on exertion) - EKG; Future; Expected date: 02/28/2024 - EKG Hypertensive urgency - EKG; Future; Expected date: 02/28/2024 - EKG Abnormal EKG EKG--normal sinus rhythm at 89 beats per minute, frequent PVCs, septal infarct age undetermined, T-wave inversions V5,6 and flat in 1 and aVL Discussed with patient need for further evaluation and treatment and agrees to go to ER, his motherwill take him. Nurse will notify ER and fax copy EKG, notes. Follow-up: Return if symptoms worsen or fail to improve. | Check-out note: To ER now (This note was completed using the dictation program Fluency Direct. As such, there may be misspellings, word substitutions, or other variations that should not change the essence of the clinical content of this encounter note. If there is need for further clarification, please direct questions to the provider listed above.) Patient and / caregiver verbalize understanding of above instructions and agrees with plan of care. Mayi Jovel MD 02/28/2024 documented in this encounter Nursing Notes * Hyacinth Leigh, Student - 02/28/2024 10:10 AM EDT Patient complaining of chest congestion. He said that sometimes it makes him cough and it has been lasting about a month. documented in this encounter Plan of Treatment Scheduled Orders Name Type Priority Associated Diagnoses Orde r Schedule EKG EKG Routine Chest congestion FERGUSON (dyspnea on exertion) Hypertensive urgency Expected: 02/28/2024 (Approximate), Expires: 03/30/2025 Health Maintenance Due Date Last Done Comments Pneumococcal Vaccine: 65+ Years (1 of 2 - PCV) [birth year]/1961 Diabetic Eye Exam 08/11/1973 Diabetic Foot Exam 08/11/1973 Cologuard 08/11/2000 Colonoscopy 08/11/2000 Colorectal Cancer Screening 08/11/2000 Fecal Occult Blood Test 08/11/2000 Sigmoidoscopy 08/11/2000 Zoster Vaccines (1 of 2) 08/11/2005 Albumin/Creatinine Ratio 03/13/2018 03/13/2017 HbA1c 04/30/2018 10/29/2017, 02/24, 11/22/2015, Additional history exists Depression Screening 10/29/2018 10/29/2017 GFR 10/29/2018 10/29/2017, 03/27, 03/13/2017, Additional history exists Lipid Panel 10/29/2022 10/29/2017, 10/26, 05/17/2015 COVID-19 Vaccine ( season) 2024 Influenza Vaccine (FLU shot) (#1) 2024 DTap/Tdap Vaccines (2 - Td or Tdap) 05/17/2025 05/17/2015, 04/19/2004 HPV (Gardasil) Vaccine Aged Out No lo nger eligible based on patient's age to complete this topic Hepatitis B Vaccine Aged Out No longe r eligible based on patient's age to complete this topic MENINGOCOCCAL (MENACTRA/MENVEO) Aged Out No longer eligible based on patient's age to complete this topic documented as of this encounter Medical Devices Implanted Type Area Revenue Investigator Device Identifier Shelf Expiration Date Model / Serial / Lot Continuum Shell Uni 56 Kk - [id number] Implanted:Qty: 1 on 05/06/2017 by Kurtis Stanton MD at OR [facility] Left: Hip [employer] 10/24/2025 [id number] / / [id number] Plug Dome Hole - [id number] Implanted:Qty: 1 on 05/06/2017 by Kurtis Stanton MD at OR [facility] Left: Hip [employer] 01/24/2027 [id number] / / [id number] Liner Vivacit E 36x56 Sizekk - [id number] Implanted:Qty: 1 on 05/06/2017 by Kurtis Stanton MD at OR [facility] Left: Hip [employer] 06/26/2021 [id number] / / [id number] Avenir Mora Stem, Standard, Uncemented, Khan , 3, Taper 05/09 Implanted:Qty: 1 on 05/06/2017 by Kurtis Stanton MD at OR [facility] Left: Hip 01/24/2021 [id number] 3 / / [id number] Head Biolox 36mm [id number] - [id number] Implanted:Qty: 1 on 05/06/2017 by Kurtis Stanton MD at OR [facility] Left: Hip [employer] 10/23/2022 [id number] / / [id number] documented as of this encounter Visit Diagnoses Diagnosis Chest congestion- Primary Other symptoms involving respiratory system and chest FERGUSON (dyspnea on exertion) Other dyspnea and respiratory abnormality Hypertensive urgency Unspecified essential hypertension Abnormal EKG Nonspecific abnormal electrocardiogram (ECG) (EKG) documented in this encounter Advance Directives * Full Code (Latest Code Status on File) Date Activated Date Inactivated Comments 05/06/2017 11:30 AM 05/09/2017 4:16 PM . Question Answer Comments Discussion of Advance Directives occurred with: Not Discussed"
[2024-02-29] MEDS: oxyCODONE HCL IR 5 MG TAB (IMMEDIATE RELEASE) PO PRN (04:20)
[2024-02-29 07:10] LABS: Estimated Average Glucose 312 mg/dl; Hemoglobin A1C 12.5 % (4.5-5.6)
[2024-02-29] MEDS: POTASSIUM CHLORIDE CRTAB 20 MEQ TABCR PO SCH (08:02)
[2024-02-29] MEDS: lisinopril 10 MG TAB PO SCH (08:02)
[2024-02-29] MEDS: FUROSEMIDE INJ 20 MG/2 ML VIAL IV SCH (08:03)
[2024-02-29] MEDS: LANTUS PER UNIT CHARGE SC SCH (09:16)
--- NOTE | 2024-02-29 10:40 | Electrocardiogram Report ---
Test Reason : Blood Pressure : */* mmHG Vent. Rate : 68 BPM Atrial Rate : 68 BPM P-R Int : 194 ms QRS Dur : 104 ms QT Int : 454 ms P-R-T Axes : 58 -39 -65 degrees QTcB Int : 482 ms Normal sinus rhythm Left axis deviation T wave abnormality, consider lateral ischemia Abnormal ECG When compared with ECG of 28-Feb-2024 11:25, QRS axis Shifted left T wave inversion now evident in Anterolateral leads QRS voltage has decreased Confirmed by Costa Hernandez ([id number]) on 02/29/2024 10:40:38 AM Referred By: REFERRED SELF Confirmed By: Costa Hernandez
--- NOTE | 2024-02-29 11:39 | Cardiology Consultation ---
<Statement entered by Edda Barroso, - 02/29/24 15:04> I have reviewed the advanced practitioner's documentation and agree with the plan of care. I accept the responsibility for the associated risk. pt seen in cardiology consultation due to newly found cardiomyopathy and acute heart failure unclear chronicity with reduced EF-NYHA Class II he responded to IV lasix; i do not think he needs anymore IV or PO diuretics i interpreted his echo today and there is marked LV dysfunction with EF about 20-25%; his DM is markedly uncontrolled as well recommend in patient cardiac catheterization on Saturday in meantime continue to optimize GDMT with lisinopril (will arrange for MTM clinic as an out pt and hopefully transition to entresto); toprol, spironolactone start ASA and crestor for assumed CAD given his uncontrolled DM monitor on telemetry; no arrhythmias upon review today defer DM management to hospitalist I discussed the case and my recommendations with the hospitalist over tiger text and he agreed with my plan Date of Consultation February 29, 2024 Assessment & Plan (1) Acute heart failure with reduced ejection fraction (HFrEF, <= 40%) and combined systolic and diastolic dysfunction: (2) HTN (hypertension): (3) Coronary artery calcification: (4) LV dysfunction: Plan Patient has been a refuge from medical care for many years. Presented yesterday to outpatient clinic with HTN, s/s of acute CHF and abnormal EKG. Started on IV lasix 20 mg in ER with apparent brisk diuresis per admission noted. Urine outputs not measured. He received second dose IV lasix 20 mg this morning. Brisk diuresis reported. Will hold additional doses for now. Echo reviewed this morning and consistent with new onset HFrEF LVEF at 20-25%. Monitor I+O's. Daily weight with standing scale. Keep mag > 2.0 and potassium 4-5. Add spironolactone 12.5 mg daily Given cardiomyopathy, start GDMT. Lisinopril initiated upon admission at 10 mg. BP trending downward. Add metoprolol succinate 12.5 mg daily this PM. Will likely benefit from Entresto, however I'm not certain about insurance coverage - so will continue with BOBBY/ARB for now. Minimally elevated troponin and flat, consistent with CHF exacerbation. Not indicative of ACS. No chest pain. Underlying ischemic heart disease is likely with risk factors of HTN, untreated DM. Start ASA 81 mg daily and statin - crestor 20 mg daily. Once volume status has improved, would anticipate cardiac cath on Saturday. Needs DM management with A1C of 12.5. Further recommendations pending evaluation and discussion with Dr. Barroso. I spent a total of 50 minutes on the date of service in preparation, delivery, and documentation of the care provided to this patient, excluding any time spent in the performance of separately billed services. Sydni Whitley PA-C Department of Cardiology, [facility] This chart was completed in part utilizing Speech Voice Recognition Software. Grammatical errors, random word insertions, pronoun errors, and incomplete sentences are an occasional consequence of this system due to software limitations, ambient noise, and hardware issues. Any formal questions or concerns about the content, text, or information contained within the body of this dictation should be directly addressed to the provider for clarification. History of Present Illness Reason for Consultation: CHF; New cardiomyopathy Requesting Physician: [facility] Hospitalist Attending Physician: Dr. Barroso History of Present Illness Patient is a 68 year old male who has not seen medical providers in many years, went to see new PCP, Dr. Jovel, yesterday with complaints of worsening SOB, orthopnea x2 weeks, increased edema. BP was elevated. EKG was abnormal demonstrating NSR, with PVC's, T wave abnormality in lateral leads. Concerns for new onset CHF. Patient sent to ER for evaluation. Upon arrival to the ER, patient was found to have elevated BNP with chest xray demonstrating small b/l pleural effusions. Started on IV lasix 20 mg x1 dose in the ER with brisk response. D.Dimer was elevated and chest CTA was done which was negative for PE and showed b/l small pleural effusions and pulm vascular congestion. Also noted to have coronary artery calcifications. HS troponin minimally elevated and fairly flat at 37-35-42. He was chest pain free. He was hypertensive on arrival. In addition to lasix, he was started on lisinopril 10 mg and potassium. Glucose significantly elevated as well with A1C of 12.5. At time of consult this morning, patient was feeling better. SOB improved. Slept better this morning. Noted leg cramps with excessive urin ation. No chest pain reported. He denies history of cardiovascular problems or issues. admits to high BP but has not taken meds in years. No family history of CAD/heart disease Allergies Allergy/AdvReac Type Severity Reaction Status Date / Time No Known Allergies Allergy Mild Verified 12/01/15 10:49 Home Medications Medication Instructions Recorded Confirmed Type ibuprofen 200 mg tablet 400 mg PO Q6H PRN Pain 02/28/24 02/28/24 History Patient History Medical History Diabetes mellitus, type II HTN (hypertension) Surgical History History of arthroplasty of knee History of hip replacement History of shoulder surgery Family History Other Prostate cancer Social History (Updated 02/28/24 @ 16:15 by Brooklyn Birmingham PA-C) Smoking Status: Never smoker Tobacco Type: Smokeless Tobacco (Dip or Chew) Hx Alcohol Use: No Hx Substance Use: No Preferred Language: Malaysian Communication Ability: Effective Beliefs That Will Affect Care: None Current Living Situation: Alone Other Information That Helps Us Care for You: No Feels Safe at Home: Yes Assistive Devices: None Review of Systems Review of Systems: All systems reviewed & are unremarkable except as noted in HPI & below Physical Exam Constitutional: WD/WN, vitals as above well nourished; no acute distress Neck: trachea midline, no thyromegaly Respiratory: normal respiratory effort, lungs clear to auscultation Cardiovascular: Rate/Rhythm: regular rate and regular rhythm Heart Sounds: normal S1 and normal S2; no murmur Vessels: no JVD Extremities: no edema Gastrointestinal (Abdomen): normal bowel sounds, soft, nontender, no hepatosplenomegaly Musculoskeletal: no cyanosis or clubbing, extremities motor strength 5/5 Results & Data Vital Signs (Past 12 Hours) Vital Signs Temp Pulse Pulse Resp BP BP Pulse Ox 02/29/24 08:30 65 02/29/24 08:12 36.6 C 71 18 123/85 97 02/29/24 02:55 36.5 C 65 18 119/75 97 02/29/24 00:41 O2 Del Method 02/29/24 08:30 02/29/24 08:12 Room Air 02/29/24 02:55 Room Air 02/29/24 00:41 Room Air Laboratory Results Cardiac Enzymes 02/28/24 02/28/24 02/28/24 Range/Units 11:31 13:14 18:55 AST 30 (13-39) U/L Troponin I High Sens 37.7 H 35.8 H 42.5 H (0-20) pg/ml B-Natriuretic Peptide 875 H (0-100) pg/ml Coagulation 02/28/24 Range/Units 11:31 B-Natriuretic Peptide 875 H (0-100) pg/ml CBC 02/28/24 02/29/24 Range/Units 11:31 01:41 WBC 7.89 8.03 (4.8-10.8) K/ul RBC 4.87 4.79 (4.70-6.10) M/uL Hgb 14.9 14.4 (14.0-18.0) g/dl Hct 41.4 L 41.3 L (42.0-52.0) % Plt Count 228 223 (130-400) K/uL Neut # (Auto) 5.13 4.81 (1.40-6.50) K/uL Lymph # (Auto) 1.93 2.33 (1.20-3.40) K/uL [place] # (Auto) 0.55 0.56 (0.11-0.59) K/uL Eos # (Auto) 0.16 0.22 (0.00-0.50) K/uL Baso # (Auto) 0.08 0.09 (0.00-0.20) K/uL Comprehensive Metabolic Panel 02/28/24 02/29/24 Range/Units 11:31 01:41 Sodium 133 L 135 L (136-145) mmol/L Potassium 4.3 3.9 (3.5-5.1) mmol/L Chloride 98 101 (98-107) mmol/L Carbon Dioxide 28 28 (21-32) mmol/L BUN 12 15 (6-23) mg/dl Creatinine 1.00 1.05 (0.6-1.4) mg/dl Glucose 397 H* 260 H (70-99(Fasting)) mg/dl Calcium 9.5 8.9 (8.6-10.3) mg/dl AST 30 (13-39) U/L ALT 43 (7-52) U/L Alkaline Phosphatase 53 (34-104) U/L Total Protein 7.1 (6.0-8.3) gm/dl Albumin 4.4 (3.4-5.0) gm/dl Intake and Output 02/28/24 02/29/24 02/29/24 22:59 06:59 14:59 Intake Total 460 / 760 300 / 760 Output Total 700 / 700 Balance -240 / 60 300 / 60 Intake: IV 100 / 200 100 / 200 Magnesium Sulfate / D5w 1 gm In 100 / 200 100 / 200 100 ml @ 50 mls/hr IV ONE ONE Rx#:[id number] Oral 360 / 560 200 / 560 Output: Urine 700 / 700 Other: Weight 88.9 kg 88.9 kg 88.4 kg Weight Measurement Method Standing Scale Standing Scale Built in [facility] Patient Weight 03/01/24 06:59 Weight 88.4 kg Diagnostic Findings Telemetry reviewed: NSR in the 70's. No arrhythmias EKG reviewed from admission 02/28/24: NSR, non specific T wave abnormality Compared with prior EKG in outpatient setting - lateral T wave inversions have improved. EKG reviewed from 02/29/24: NSR, LAD T wave abnormality in anterolateral leads, worse compared with prior EKG Echo reviewed from 02/29/24: LVEF at 20-25% Diffuse hypokinesis LV systolic function is severely reduced. Mild concentric LVH LV is mildly dilated LA is moderately dilated Mild MR Trace TR Normal inferior vena cava size and collapsibility with sniff indicates normal right atrial pressure of 3 mmHg No prior study for comparison. Chest X-Ray 02/28/24 11:21 IMPRESSION: No active disease in the chest. Chest CTA 02/28/24 12:46 IMPRESSION: 1. No pulmonary emboli identified. 2. Cardiomegaly with mild interstitial pulmonary edema and small bilateral pleural effusions. 3. No consolidation to suggest pneumonia. 4. Moderate coronary artery calcification. ACT 112: Negative or not required by law. Electronically signed by: Kishor Hensley M.D. 02/28/2024 2:01 PM Medications Administered Current Inpatient Medications Acetaminophen (Acetaminophen 325 Mg Tab) 650 mg PO Q4H PRN PRN Reason: Pain or Fever Stop: 03/29/24 17:32 Dextrose (Dextrose 50% 50 Ml Syringe) 25 - 50 ml IV UD PRN; Protocol PRN Reason: Hypoglycemia Protocol Stop: 03/29/24 17:32 Enoxaparin Sodium (Enoxaparin Inj 40 Mg/0.4 Ml Syr) 40 mg SQ Q24H SOCO Stop: 03/29/24 17:59 Last Admin: 02/28/24 18:15 Dose: Not Given Furosemide (Furosemide Inj 20 Mg/2 Ml Vial) 20 mg IV DAILY SOCO Stop: 03/30/24 08:59 Last Admin: 02/29/24 08:03 Dose: 20 mg Glucagon (Glucagon For Inj 1 Mg Vial) 1 mg SQ UD PRN; Protocol PRN Reason: Hypoglycemia Protocol Stop: 03/29/24 17:32 Glucose (Glucose 40% Gel 15 Gm Tube) 15 - 30 gm PO UD PRN; Protocol PRN Reason: Hypoglycemia Protocol Stop: 03/29/24 17:32 Glucose (Glucose 10 Tab/Tube) 4 - 8 tab PO UD PRN; Protocol PRN Reason: Hypoglycemia Treatment Stop: 03/29/24 17:32 Insulin Aspart (Insulin Aspart Per Unit Charge) 0 units SC ACHS [facility]O Stop: 03/29/24 17:32 Last Admin: 02/29/24 09:16 Dose: 8 units Insulin Glargine (Lantus Per Unit Charge) 20 units SC QAM [facility] Stop: 03/30/24 08:59 Last Admin: 02/29/24 09:16 Dose: 20 units Lisinopril (Lisinopril 10 Mg Tab) 10 mg PO QAM [facility] Stop: 03/30/24 08:59 Last Admin: 02/29/24 08:02 Dose: 10 mg Melatonin (Melatonin 3 Mg Tab) 3 mg PO HS PRN PRN Reason: Sleep Stop: 03/29/24 23:04 Last Admin: 02/28/24 23:38 Dose: 3 mg Miscellaneous (Carbohydrates For Hypoglycemia ) 15 - 30 gm PO UD PRN PRN Reason: Hypoglycemia Protocol Stop: 03/29/24 17:32 Miscellaneous Information (Pharmacy Glycemic Mgmt Consult) 1 each N/A UD PRN PRN Reason: Consult Stop: 03/29/24 17:32 Ondansetron HCl (Ondansetron Inj 2 Mg/Ml 2 Ml Vial) 4 mg IV Q6H PRN PRN Reason: Nausea Stop: 03/29/24 17:32 Oxycodone HCl (Oxycodone Hcl Ir 5 Mg Tab (Immediate Release)) 5 mg PO Q4H PRN PRN Reason: Pain Stop: 03/14/24 04:06 Last Admin: 02/29/24 09:31 Dose: 5 mg Polyethylene Glycol (Polyethylene (Miralax) 17 Gm Pack) 17 gm PO DAILY PRN PRN Reason: Constipation Stop: 03/29/24 17:32 Potassium Chloride (Potassium Chloride Crtab 20 Meq Tabcr) 20 meq PO QAM [facility] Stop: 03/30/24 08:59 Last Admin: 02/29/24 08:02 Dose: 20 meq
[2024-02-29] MEDS: ASPIRIN 81 MG ECTAB PO SCH (12:39)
[2024-02-29] MEDS: ROSUVASTATIN CALCIUM 20 MG TAB PO SCH (12:39)
[2024-02-29] MEDS: SPIRONOLACTONE 12.5 MG TAB PO SCH (12:39)
--- NOTE | 2024-02-29 14:49 | Hospitalist Progress Note ---
Date of Service February 29, 2024 Assessment & Plan (1) Acute heart failure with reduced ejection fraction (HFrEF, <= 40%) and combined systolic and diastolic dysfunction: Plan: Presented with orthopnea and shortness of breath Noted to have interstitial pulmonary edema with small bilateral effusion Echo of the heart revealed EF of 20 to 25% Received 1 dose of intravenous Lasix and the condition improved a lot Appreciate cardiology input and recommendation for possible cath on Saturday Has been feeling much better (2) Cardiomyopathy: Plan: Has cardiomyopathy ECHO of the heart showed:- EF of 20 to 25%, diffuse hypokinesis, LV systolic function is severely reduced, diastolic dysfunction is present due to low EF, mild concentric LVH and left ventricle is mildly dilated, left atrium is mode rately dilated and mild mitral regurgitation there is trace tricuspid regurgitation Started on lisinopril Possible cardiac cath on Saturday (3) Orthopnea: (4) Pleural effusion: Plan: CTA did show very small bilateral pleural effusion (5) HTN (hypertension): Plan: In ER BP 172/109, 161/114 Previously patient on lisinopril 10 mg daily however not taken for years Will restart lisinopril 10mg daily and monitor while on IV lasix (6) Diabetes mellitus, type II: Plan: Untreated uncontrolled DM II A1c: 9.3 on 10/29/2017--- repeat hemoglobin A1c is more than 12 Previously patient on metformin, however has not been seen by PCP or had medications for years Today Random glucose: 398 Basal bolus insulin per protocol Will need insulin to continue as an outpatient for control of diabetes Diabetes teaching in the hospital (7) Tobacco use: Plan: Chews tobacco Denies nicotine patch DVT Prophylaxis Lovenox SQ Code Status Full Admission and Anticipated Discharge Date Admission Date: February 28, 2024 Subjective 02/29/2024 The patient was seen and examined in medical telemetry unit He was admitted with orthopnea and shortness of breath for the last few days He has been very noncompliant with medication and also doctor's visit Has been getting much better following 1 dose of intravenous Lasix and initially wanted to go home His diabetes is out of control with hemoglobin A1c more than 12 Review of Systems Review of Systems: all systems reviewed and are unremarkable except as noted below Physical Exam Physical Exam: lying in bed without any acute distress Constitutional: well developed, well nourished and + ill appearing Eyes: PERRL, conjunctivae normal, anicteric sclerae ENMT: external ear and nose normal, oropharynx normal Neck: trachea midline, no thyromegaly Respiratory: no respiratory distress Auscultation: lungs clear to auscultation bilaterally and + crackles ( minimal crackles at the bases) Cardiovascular: Rate/Rhythm: regular rate and regular rhythm; not tachycardic Heart Sounds: normal S1 and normal S2; no murmur Extremities: + edema Gastrointestinal (Abdomen): Inspection/Auscultation: normal bowel sounds; abdomen not distended Percussion/Palpation: abdomen soft; abdomen nontender Musculoskeletal: no acute arthritis involving any of the joints Neurologic: normal touch/pain/proprioception and moves all extremities; no focal motor deficits Lymphatic: no cervical or axillary lymphadenopathy Results & Data Results & Data Vital Signs (Past 12 Hours) Vital Signs Temp Pulse Pulse Resp BP BP Pulse Ox 02/29/24 14:41 78 02/29/24 11:22 36.7 C 76 18 122/81 96 02/29/24 08:30 65 02/29/24 08:12 36.6 C 71 18 123/85 97 02/29/24 02:55 36.5 C 65 18 119/75 97 O2 Del Method 02/29/24 14:41 02/29/24 11:22 Room Air 02/29/24 08:30 02/29/24 08:12 Room Air 02/29/24 02:55 Room Air Laboratory Results Short CBC 02/29/24 Range/Units 01:41 WBC 8.03 (4.8-10.8) K/ul Hgb 14.4 (14.0-18.0) g/dl Hct 41.3 L (42.0-52.0) % Plt Count 223 (130-400) K/uL BMP 02/29/24 01:41 Sodium 135 L Potassium 3.9 Chloride 101 Carbon Dioxide 28 BUN 15 Creatinine 1.05 Glucose 260 H Calcium 8.9 Medications Administered Current Inpatient Medications Acetaminophen (Acetaminophen 325 Mg Tab) 650 mg PO Q4H PRN PRN Reason: Pain or Fever Stop: 03/29/24 17:32 Aspirin (Aspirin 81 Mg Ectab) [facility] [place]: 03/30/24 11:54 Last Admin: 02/29/24 12:39 Dose: 81 mg Dextrose (Dextrose 50% 50 Ml Syringe) 25 - 50 ml IV UD PRN; Protocol PRN Reason: Hypoglycemia Protocol Stop: 03/29/24 17:32 Enoxaparin Sodium (Enoxaparin Inj 40 Mg/0.4 Ml Syr) 40 mg SQ Q24H [facility] Stop: 03/29/24 17:59 Last Admin: 02/28/24 18:15 Dose: Not Given Furosemide (Furosemide Inj 20 Mg/2 Ml Vial) 20 mg IV DAILY [facility] Stop: 03/30/24 08:59 Last Admin: 02/29/24 08:03 Dose: 20 mg Glucagon (Glucagon For Inj 1 Mg Vial) 1 mg SQ UD PRN; Protocol PRN Reason: Hypoglycemia Protocol Stop: 03/29/24 17:32 Glucose (Glucose 40% Gel 15 Gm Tube) 15 - 30 gm PO UD PRN; Protocol PRN Reason: Hypoglycemia Protocol Stop: 03/29/24 17:32 Glucose (Glucose 10 Tab/Tube) 4 - 8 tab PO UD PRN; Protocol PRN Reason: Hypoglycemia Treatment Stop: 03/29/24 17:32 Insulin Aspart (Insulin Aspart Per Unit Charge) 0 units SC ACHS [facility] Stop: 03/29/24 17:32 Last Admin: 02/29/24 13:07 Dose: 6 units Insulin Glargine (Lantus Per Unit Charge) 20 units SC QAM [facility] Stop: 03/30/24 08:59 Last Admin: 02/29/24 09:16 Dose: 20 units Lisinopril (Lisinopril 10 Mg Tab) 10 mg PO QAM [facility] Stop: 03/30/24 08:59 Last Admin: 02/29/24 08:02 Dose: 10 mg Melatonin (Melatonin 3 Mg Tab) 3 mg PO HS PRN PRN Reason: Sleep Stop: 03/29/24 23:04 Last Admin: 02/28/24 23:38 Dose: 3 mg Metoprolol Succinate (Metoprolol Succ 25mg Ext Rel Tab) 12.5 mg PO QPM [facility] Stop: 03/30/24 20:59 Miscellaneous (Carbohydrates For Hypoglycemia ) 15 - 30 gm PO UD PRN PRN Reason: Hypoglycemia Protocol Stop: 03/29/24 17:32 Miscellaneous Information (Pharmacy Glycemic Mgmt Consult) 1 each N/A UD PRN PRN Reason: Consult Stop: 03/29/24 17:32 Ondansetron HCl (Ondansetron Inj 2 Mg/Ml 2 Ml Vial) 4 mg IV Q6H PRN PRN Reason: Nausea Stop: 03/29/24 17:32 Oxycodone HCl (Oxycodone Hcl Ir 5 Mg Tab (Immediate Release)) 5 mg PO Q4H PRN PRN Reason: Pain Stop: 03/14/24 04:06 Last Admin: 02/29/24 09:31 Dose: 5 mg Polyethylene Glycol (Polyethylene (Miralax) 17 Gm Pack) 17 gm PO DAILY PRN PRN Reason: Constipation Stop: 03/29/24 17:32 Potassium Chloride (Potassium Chloride Crtab 20 Meq Tabcr) 20 meq PO QAM [facility] Stop: 03/30/24 08:59 Last Admin: 02/29/24 08:02 Dose: 20 meq Rosuvastatin Calcium (Rosuvastatin Calcium 20 Mg Tab) 20 mg PO QAM [facility] Stop: 03/30/24 11:59 Last Admin: 02/29/24 12:39 Dose: 20 mg Spironolactone (Spironolactone 12.5 Mg Tab) 12.5 mg PO DAILY [facility] Stop: 03/30/24 11:59 Last Admin: 02/29/24 12:39 Dose: 12.5 mg
--- NOTE | 2024-02-29 15:55 | Pharmacy Report ---
Pharmacy Glycemic Short Note 2 - Date of Service February 29, 2024 - Glycemic Short BSG Results (Last 24 hours): 02/28/24 02/28/24 02/28/24 17:50 19:58 23:31 Glucose POC Glucose 279 H 212 H 194 H 02/29/24 02/29/24 02/29/24 01:41 03:55 08:10 Glucose 260 H POC Glucose 231 H 162 H 02/29/24 12:26 Glucose POC Glucose 126 H OUTPATIENT ANTIDIABETIC REGIMEN: * None * HbA1c = 12.5% on 02/29/24 ASSESSMENT: * 68 y/o M admitted for acute exacerbation of Heart failure and fluid overload. Patient is an uncontrolled Type 2 diabetic. He was not on any anti-diabetic meds prior to admission. * Blood sugar on admission was 397 mg/dl. Novolog parameters ordered yesterday based on stress of 2. Basal Lantus 10 units given at HS. * Fasting BSG elevated this morning. Basal insulin dose increased to 20 units which is between a stress of 2 and 3. * Since pre-lunch BSG trended down into goal range, Novolog parameters loosened at dinner time today. PLAN FOR INPATIENT GLYCEMIC CONTROL: * Hold outpatient oral diabetes medications * Basal insulin * Lantus 20 units SQ QAM * Bolus insulin * NovoLog per scale ACHS or Q6hrs while NPO * Goal Range: Low 110 mg/dL - High 140 mg/dL * Correction Factor: 20 mg/dL/unit * Nutritional / Prandial insulin per carb ratio of 1 unit per 7 grams CHO consumed
[2024-02-29] MEDS: METOPROLOL SUCC 25MG EXT REL TAB PO SCH (20:04)
[2024-03-01] MEDS: POLYETHYLENE (MIRALAX) 17 GM PACK PO PRN (05:05)
[2024-03-01 06:05] LABS: Basophils # (auto) 0.08 K/uL (0.00-0.20); Basophils % (auto) 0.9 %; Eosinophils # (auto) 0.24 K/uL (0.00-0.50); Eosinophils % (auto) 2.8 %; Immature Granulocytes # (auto) 0.05 K/uL (0.01-0.20); Immature Granulocytes % (auto) 0.6 %; Lymphocytes # (auto) 2.16 K/uL (1.20-3.40); Lymphocytes % (auto) 25.3 %; Mean Corpuscular Hemoglobin 30.3 pg (25.0-34.0); Mean Corpuscular Hgb Conc 34.1 g/dL (32.0-36.0); Mean Corpuscular Volume 88.9 fL (80.0-100.0); Mean Platelet Volume 10.5 fL (9.4-12.4); Monocytes # (auto) 0.68 K/uL (0.11-0.59); Neutrophils # (auto) 5.32 K/uL (1.40-6.50); Neutrophils % (auto) 62.4 %; Platelet Count 223 K/uL (130-400); RDW Coefficient of Variation 12.4 % (11.5-14.5); RDW Standard Deviation 40.3 fL (36.4-46.3); Red Blood Count 4.95 M/uL (4.70-6.10); White Blood Count 8.53 K/ul (4.8-10.8)
[2024-03-01] MEDS: METOPROLOL TARTRATE 25 MG TAB PO STA (06:12)
[2024-03-01] MEDS: POTASSIUM CHLORIDE CRTAB 20 MEQ TABCR PO SCH (06:12)
[2024-03-01 06:19] LABS: BUN Creatinine Ratio 14.3 (10-20); Calcium 9.2 mg/dl (8.6-10.3); Creatinine Clr Calc Pharmacy 82.7 ml/min; Magnesium 1.8 mg/dl (1.7-2.4); Phosphorus 3.8 mg/dl (2.5-4.9); Potassium 4.5 mmol/L (3.5-5.1)
[2024-03-01] MEDS: LANTUS PER UNIT CHARGE SC SCH (08:59)
--- NOTE | 2024-03-01 12:04 | Cardiology Progress Note ---
<Statement entered by Edda Barroso DO - 03/01/24 16:12> I have reviewed the advanced practitioner's documentation and agree with the plan of care. I accept the responsibility for the associated risk. Pt seen in cardiology follow up due to newly found cardiomyopathy which i am assuming is ischemic given his uncontrolled diabetes pt is for a cardiac catheterization in the morning with Dr. Winter NPO after midnight Pt is having some brief NSVT; I will discuss with the wearable defibrillator rep for [employer] to see if we can possibly get this arranged for his discharge continue GDMT he will need MTM f/u in our office in addition to cardiology f/u monitor on telemetry I discussed the case and my recommendations with the hospitalist over the phone and he agreed with my plan Date of Service March 01, 2024 Assessment & Plan (1) Acute heart failure with reduced ejection fraction (HFrEF, <= 40%) and combined systolic and diastolic dysfunction: (2) HTN (hypertension): (3) Coronary artery calcification: (4) LV dysfunction: Plan 02/29/24: Patient has been a refuge from medical care for many years. Presented yesterday to outpatient clinic with HTN, s/s of acute CHF and abnormal EKG. Started on IV lasix 20 mg in ER with apparent brisk diuresis per admission noted. Urine outputs not measured. He received second dose IV lasix 20 mg this morning. Brisk diuresis reported. Will hold additional doses for now. Echo reviewed this morning and consistent with new onset HFrEF LVEF at 20-25%. Monitor I+O's. Daily weight with standing scale. Keep mag > 2.0 and potassium 4-5. Add spironolactone 12.5 mg daily Given cardiomyopathy, start GDMT. Lisinopril initiated upon admission at 10 mg. BP trending downward. Add metoprolol succinate 12.5 mg daily this PM. Will likely benefit from Entresto, however I'm not certain about insurance coverage - so will continue with BOBBY/ARB for now. Minimally elevated troponin and flat, consistent with CHF exacerbation. Not indicative of ACS. No chest pain. Underlying ischemic heart disease is likely with risk factors of HTN, untreated DM. Start ASA 81 mg daily and statin - crestor 20 mg daily. Once volume status has improved, would anticipate cardiac cath on Saturday. Needs DM management with A1C of 12.5. 03/01/24: Volume status improved since admission Stable labs today BP and HR well controlled Continue ASA, statin, lisinopril, metoprolol. NPO after midnight for possible cath tomorrow given severe LV dysfunction and cardiac risk factors. he had 5 beat run of VT during sleep. Outpatient sleep evaluation Would also recommend wearable defib -Assure device -on discharge given cardiomyopathy Further recommendations pending evaluation and discussion with Dr. Barroso. I spent a total of 30 minutes on the date of service in preparation, delivery, and documentation of the care provided to this patient, excluding any time spent in the performance of separately billed services. Sydni Whitley PA-C Department of Cardiology, [facility] This chart was completed in part utilizing Speech Voice Recognition Software. Grammatical errors, random word insertions, pronoun errors, and incomplete sentences are an occasional consequence of this system due to software l imitations, ambient noise, and hardware issues. Any formal questions or concerns about the content, text, or information contained within the body of this dictation should be directly addressed to the provider for clarification. Admission and Anticipated Discharge Date Admission Date: February 28, 2024 Subjective Patient resting in bed comfortably. SOB improved from admission. No chest pain. No orhtopnea. No edema. No dizziness. Had 5 beat run of VT this morning, during presumed sleep. no symptoms Review of Systems Review of Systems: All systems reviewed & are unremarkable except as noted in HPI & below Physical Exam Constitutional: WD/WN, vitals as above well nourished; no acute distress Neck: trachea midline, no thyromegaly Respiratory: normal respiratory effort, lungs clear to auscultation Cardiovascular: Rate/Rhythm: regular rate and regular rhythm Heart Sounds: normal S1 and normal S2; no murmur Vessels: no JVD Extremities: no edema Gastrointestinal (Abdomen): normal bowel sounds, soft, nontender, no hepatosplenomegaly Musculoskeletal: no cyanosis or clubbing, extremities motor strength 5/5 Results & Data Vital Signs (Past 12 Hours) Vital Signs Temp Pulse Pulse Resp BP BP Pulse Ox 03/01/24 11:22 37.0 C 79 18 125/85 98 03/01/24 08:10 37.1 C 70 18 128/90 95 03/01/24 07:19 75 03/01/24 05:38 76 121/82 03/01/24 02:33 36.6 C 65 18 119/78 98 O2 Del Method 03/01/24 11:22 Room Air 03/01/24 08:10 Room Air 03/01/24 07:19 03/01/24 05:38 03/01/24 02:33 Room Air Laboratory Results CBC 03/01/24 Range/Units 05:27 WBC 8.53 (4.8-10.8) K/ul RBC 4.95 (4.70-6.10) M/uL Hgb 15.0 (14.0-18.0) g/dl Hct 44.0 (42.0-52.0) % Plt Count 223 (130-400) K/uL Neut # (Auto) 5.32 (1.40-6.50) K/uL Lymph # (Auto) 2.16 (1.20-3.40) K/uL Upson # (Auto) 0.68 H (0.11-0.59) K/uL Eos # (Auto) 0.24 (0.00-0.50) K/uL Baso # (Auto) 0.08 (0.00-0.20) K/uL Comprehensive Metabolic Panel 03/01/24 Range/Units 05:39 Sodium 138 (136-145) mmol/L Potassium 4.5 (3.5-5.1) mmol/L Chloride 103 (98-107) mmol/L Carbon Dioxide 28 (21-32) mmol/L BUN 13 (6-23) mg/dl Creatinine 0.91 (0.6-1.4) mg/dl Glucose 192 H (70-99(Fasting)) mg/dl Calcium 9.2 (8.6-10.3) mg/dl Intake and Output 02/29/24 03/01/24 03/01/24 22:59 06:59 14:59 Intake Total 240 / 765 200 / 765 Balance 240 / 765 200 / 765 Intake: Oral 240 / 765 200 / 765 Other: Weight 84.6 kg Weight Measurement Method Standing Scale Diagnostic Findings telemetry reviewed: NSR. one run of VT lasting 5 beats at 5:18 AM Medications Administered Current Inpatient Medications Acetaminophen (Acetaminophen 325 Mg Tab) 650 mg PO Q4H PRN PRN Reason: Pain or Fever Stop: 03/29/24 17:32 Aspirin (Aspirin 81 Mg Ectab) 81 mg PO QAM [facility] Stop: 03/30/24 11:54 Last Admin: 03/01/24 08:04 Dose: 81 mg Dextrose (Dextrose 50% 50 Ml Syringe) 25 - 50 ml IV UD PRN; Protocol PRN Reason: Hypoglycemia Protocol Stop: 03/29/24 17:32 Enoxaparin Sodium (Enoxaparin Inj 40 Mg/0.4 Ml Syr) 40 mg SQ Q24H [facility] Stop: 03/29/24 17:59 Last Admin: 02/29/24 17:45 Dose: 40 mg Furosemide (Furosemide Inj 20 Mg/2 Ml Vial) 20 mg IV DAILY [facility] Stop: 03/30/24 08:59 Last Admin: 02/29/24 08:03 Dose: 20 mg Glucagon (Glucagon For Inj 1 Mg Vial) 1 mg SQ UD PRN; Protocol PRN Reason: Hypoglycemia Protocol Stop: 03/29/24 17:32 Glucose (Glucose 40% Gel 15 Gm Tube) 15 - 30 gm PO UD PRN; Protocol PRN Reason: Hypoglycemia Protocol Stop: 03/29/24 17:32 Glucose (Glucose 10 Tab/Tube) 4 - 8 tab PO UD PRN; Protocol PRN Reason: Hypoglycemia Treatment Stop: 03/29/24 17:32 Insulin Aspart (Insulin Aspart Per Unit Charge) 0 units SC [facility] Stop: 03/29/24 17:32 Last Admin: 03/01/24 08:58 Dose: 12 units Insulin Glargine (Lantus Per Unit Charge) 25 units SC QAM [facility] Stop: 03/31/24 08:59 Last Admin: 03/01/24 08:59 Dose: 25 units Lisinopril (Lisinopril 10 Mg Tab) 10 mg PO QAM [facility] Stop: 03/30/24 08:59 Last Admin: 03/01/24 08:04 Dose: 10 mg Melatonin (Melatonin 3 Mg Tab) 3 mg PO HS PRN PRN Reason: Sleep Stop: 03/29/24 23:04 Last Admin: 02/28/24 23:38 Dose: 3 mg Metoprolol Succinate (Metoprolol Succ 25mg Ext Rel Tab) 12.5 mg PO QPM [facility] Stop: 03/30/24 20:59 Last Admin: 02/29/24 20:04 Dose: 12.5 mg Miscellaneous (Carbohydrates For Hypoglycemia ) 15 - 30 gm PO UD PRN PRN Reason: Hypoglycemia Protocol Stop: 03/29/24 17:32 Miscellaneous Information (Pharmacy Glycemic Mgmt Consult) 1 each N/A UD PRN PRN Reason: Consult Stop: 03/29/24 17:32 Ondansetron HCl (Ondansetron Inj 2 Mg/Ml 2 Ml Vial) 4 mg IV Q6H PRN PRN Reason: Nausea Stop: 03/29/24 17:32 Oxycodone HCl (Oxycodone Hcl Ir 5 Mg Tab (Immediate Release)) 5 mg PO Q4H PRN PRN Reason: Pain Stop: 03/14/24 04:06 Last Admin: 03/01/24 04:58 Dose: 5 mg Polyethylene Glycol (Polyethylene (Miralax) 17 Gm Pack) 17 gm PO DAILY PRN PRN Reason: Constipation Stop: 03/29/24 17:32 Last Admin: 03/01/24 05:05 Dose: 17 gm Rosuvastatin Calcium (Rosuvastatin Calcium 20 Mg Tab) 20 mg PO QAM [facility] Stop: 03/30/24 11:59 Last Admin: 03/01/24 08:04 Dose: 20 mg Spironolactone (Spironolactone 12.5 Mg Tab) 12.5 mg PO DAILY [facility] Stop: 03/30/24 11:59 Last Admin: 03/01/24 08:04 Dose: 12.5 mg
--- NOTE | 2024-03-01 14:35 | Hospitalist Progress Note ---
Date of Service March 01, 2024 Assessment & Plan (1) Acute heart failure with reduced ejection fraction (HFrEF, <= 40%) and combined systolic and diastolic dysfunction: Plan: Presented with orthopnea and shortness of breath Noted to have interstitial pulmonary edema with small bilateral effusion Echo of the heart revealed EF of 20 to 25% Received 1 dose of intravenous Lasix and the condition improved a lot Appreciate cardiology input and recommendation for possible cath on Saturday Has been feeling much better He has been on intravenous Lasix 20 mg a day (2) Cardiomyopathy: Plan: Has cardiomyopathy ECHO of the heart showed:- EF of 20 to 25%, diffuse hypokinesis, LV systolic function is severely reduced, diastolic dysfunction is present due to low EF, mild concentric LVH and left ventricle is mildly dilated, left atrium is moderately dilated and mild mitral regurgitation there is trace tricuspid regurgitation Started on lisinopril Possible cardiac cath on Saturday- will give oral Ativan prior to cardiac cath due to severe anxiety Has been getting aspirin, metoprolol, lisinopril, spironolactone and Crestor (3) Diabetes mellitus, type II: Plan: Untreated uncontrolled DM II A1c: 9.3 on 10/29/2017--- repeat hemoglobin A1c is 12.5 Previously patient on metformin, however has not been seen by PCP or had medic ations for years Today Random glucose: 398 Basal bolus insulin per protocol Will need insulin to continue as an outpatient for control of diabetes Diabetes teaching in the hospital Pharmacist and glycemic consult (4) Orthopnea: (5) Pleural effusion: Plan: CTA did show very small bilateral pleural effusion (6) HTN (hypertension): Plan: In ER BP 172/109, 161/114 Previously patient on lisinopril 10 mg daily however not taken for years Will restart lisinopril 10mg daily and monitor while on IV lasix (7) Tobacco use: Plan: Chews tobacco Denies nicotine patch DVT Prophylaxis Lovenox SQ Code Status Full Admission and Anticipated Discharge Date Admission Date: February 28, 2024 Subjective 02/29/2024 The patient was seen and examined in medical telemetry unit He was admitted with orthopnea and shortness of breath for the last few days He has been very noncompliant with medication and also doctor's visit Has been getting much better following 1 dose of intravenous Lasix and initially wanted to go home His diabetes is out of control with hemoglobin A1c more than 12 03/01/2024 The patient was seen and examined in medical telemetry unit He has been very very anxious but otherwise denies any symptoms He is willing to have diabetic teaching and also insulin on discharge He will have cardiac cath tomorrow Review of Systems Review of Systems: all systems reviewed and are unremarkable except as noted below Physical Exam Physical Exam: lying in bed without any acute distress Constitutional: well developed, well nourished and + ill appearing Eyes: PERRL, conjunctivae normal, anicteric sclerae ENMT: external ear and nose normal, oropharynx normal Neck: trachea midline, no thyromegaly Respiratory: no respiratory distress Auscultation: lungs clear to auscultation bilaterally and + crackles ( minimal crackles at the bases) Cardiovascular: Rate/Rhythm: regular rate and regular rhythm; not tachycardic Heart Sounds: normal S1 and normal S2; no murmur Extremities: + edema Gastrointestinal (Abdomen): Inspection/Auscultation: normal bowel sounds; abdomen not distended Percussion/Palpation: abdomen soft; abdomen nontender Neurologic: normal touch/pain/proprioception and moves all extremities; no focal motor deficits Lymphatic: no cervical or axillary lymphadenopathy Results & Data Results & Data Vital Signs (Past 12 Hours) Vital Signs Temp Pulse Pulse Resp BP BP Pulse Ox 03/01/24 11:22 37.0 C 79 18 125/85 98 03/01/24 08:10 37.1 C 70 18 128/90 95 03/01/24 07:19 75 03/01/24 05:38 76 121/82 03/01/24 02:33 36.6 C 65 18 119/78 98 O2 Del Method 03/01/24 11:22 Room Air 03/01/24 08:10 Room Air 03/01/24 07:19 03/01/24 05:38 03/01/24 02:33 Room Air Laboratory Results Short CBC 03/01/24 Range/Units 05:27 WBC 8.53 (4.8-10.8) K/ul Hgb 15.0 (14.0-18.0) g/dl Hct 44.0 (42.0-52.0) % Plt Count 223 (130-400) K/uL BMP 03/01/24 05:39 Sodium 138 Potassium 4.5 Chloride 103 Carbon Dioxide 28 BUN 13 Creatinine 0.91 Glucose 192 H Calcium 9.2 Medications Administered Current Inpatient Medications Acetaminophen (Acetaminophen 325 Mg Tab) 650 mg PO Q4H PRN PRN Reason: Pain or Fever Stop: 03/29/24 17:32 Aspirin (Aspirin 81 Mg Ectab) 81 mg PO QAM [facility] Stop: 03/30/24 11:54 Last Admin: 03/01/24 08:04 Dose: 81 mg Dextrose (Dextrose 50% 50 Ml Syringe) 25 - 50 ml IV UD PRN; Protocol PRN Reason: Hypoglycemia Protocol Stop: 03/29/24 17:32 Enoxaparin Sodium (Enoxaparin Inj 40 Mg/0.4 Ml Syr) 40 mg SQ Q24H [facility] Stop: 03/29/24 17:59 Last Admin: 02/29/24 17:45 Dose: 40 mg Furosemide (Furosemide Inj 20 Mg/2 Ml Vial) 20 mg IV DAILY [facility] Stop: 03/30/24 08:59 Last Admin: 02/29/24 08:03 Dose: 20 mg Glucagon (Glucagon For Inj 1 Mg Vial) 1 mg SQ UD PRN; Protocol PRN Reason: Hypoglycemia Protocol Stop: 03/29/24 17:32 Glucose (Glucose 40% Gel 15 Gm Tube) 15 - 30 gm PO UD PRN; Protocol PRN Reason: Hypoglycemia Protocol Stop: 03/29/24 17:32 Glucose (Glucose 10 Tab/Tube) 4 - 8 tab PO UD PRN; Protocol PRN Reason: Hypoglycemia Treatment Stop: 03/29/24 17:32 Insulin Aspart (Insulin Aspart Per Unit Charge) 0 units SC [facility] Stop: 03/29/24 17:32 Last Admin: 03/01/24 12:57 Dose: 7 units Insulin Glargine (Lantus Per Unit Charge) 25 units SC QAM [facility] Stop: 03/31/24 08:59 Last Admin: 03/01/24 08:59 Dose: 25 units Lisinopril (Lisinopril 10 Mg Tab) 10 mg PO QAM [facility] Stop: 03/30/24 08:59 Last Admin: 03/01/24 08:04 Dose: 10 mg Lorazepam (Lorazepam 0.5 Mg Tab) 0.5 mg PO UD [facility] Stop: 03/02/24 16:00 Melatonin (Melatonin 3 Mg Tab) 3 mg PO HS PRN PRN Reason: Sleep Stop: 03/29/24 23:04 Last Admin: 02/28/24 23:38 Dose: 3 mg Metoprolol Succinate (Metoprolol Succ 25mg Ext Rel Tab) 12.5 mg PO QPM [facility] Stop: 03/30/24 20:59 Last Admin: 02/29/24 20:04 Dose: 12.5 mg Miscellaneous (Carbohydrates For Hypoglycemia ) 15 - 30 gm PO UD PRN PRN Reason: Hypoglycemia Protocol Stop: 03/29/24 17:32 Miscellaneous Information (Pharmacy Glycemic Mgmt Consult) 1 each N/A UD PRN PRN Reason: Consult Stop: 03/29/24 17:32 Ondansetron HCl (Ondansetron Inj 2 Mg/Ml 2 Ml Vial) 4 mg IV Q6H PRN PRN Reason: Nausea Stop: 03/29/24 17:32 Oxycodone HCl (Oxycodone Hcl Ir 5 Mg Tab (Immediate Release)) 5 mg PO Q4H PRN PRN Reason: Pain Stop: 03/14/24 04:06 Last Admin: 03/01/24 04:58 Dose: 5 mg Polyethylene Glycol (Polyethylene (Miralax) 17 Gm Pack) 17 gm PO DAILY PRN PRN Reason: Constipation Stop: 03/29/24 17:32 Last Admin: 03/01/24 05:05 Dose: 17 gm Rosuvastatin Calcium (Rosuvastatin Calcium 20 Mg Tab) 20 mg PO QAM [facility] Stop: 03/30/24 11:59 Last Admin: 03/01/24 08:04 Dose: 20 mg Spironolactone (Spironolactone 12.5 Mg Tab) 12.5 mg PO DAILY [facility] Stop: 03/30/24 11:59 Last Admin: 03/01/24 08:04 Dose: 12.5 mg
[2024-03-02] MEDS ORDERED: LORazepam 0.5 MG TAB PO SCH (06:00)
[2024-03-02 07:05] LABS: BUN Creatinine Ratio 19.6 (10-20); Calcium 9.6 mg/dl (8.6-10.3); Creatinine Clr Calc Pharmacy 73.8 ml/min; Phosphorus 4.1 mg/dl (2.5-4.9); Potassium 4.4 mmol/L (3.5-5.1)
--- NOTE | 2024-03-02 08:29 | Pre Anesthesia Assessment ---
Date of Service March 02, 2024 Pre Sedation Assessment Vital Signs Temp Pulse Pulse Pulse Resp BP Pulse Ox 03/02/24 08:14 74 74 14 129/89 96 03/02/24 07:17 97.5 F L 79 18 134/79 97 03/02/24 06:59 70 03/02/24 04:32 60 03/02/24 03:38 97.7 F 68 20 125/84 96 03/01/24 23:43 97.9 F 76 20 104/68 95 03/01/24 21:45 72 03/01/24 20:00 98.2 F 78 20 138/92 96 03/01/24 15:43 69 03/01/24 15:17 98.4 F 74 18 117/75 98 03/01/24 11:22 98.6 F 79 18 125/85 98 O2 Del Method 03/02/24 08:14 Room Air 03/02/24 07:17 Room Air 03/02/24 06:59 03/02/24 04:32 03/02/24 03:38 Room Air 03/01/24 23:43 Room Air 03/01/24 21:45 03/01/24 20:00 Room Air 03/01/24 15:43 03/01/24 15:17 Room Air 03/01/24 11:22 Room Air Cardiovascular + regular rate Respiratory + respiratory effort normal Pre-Sedation Airway Assessment Smoking Status: Never smoker Hx Sleep Apnea: No Short, Thick Neck: No Thyromental Distance: > or= 3.5 Finger Breadths Oral Cavity: + WNL Mallampati Class: II ASA: ASA3 NPO Status Date of Last Intake of Fluids: 03/01/24 Time of Last Intake of Fluids: 23:40 Date of Last Intake of Solid Food: 03/01/24 Time of Last Intake of Solid Foods: 23:40 Procedure Planning Contraindications for Sedation: none Current Medications Reviewed: Yes Notes The planned sedation has been discussed with the patient. Informed Consent was obtained. I have identified the patient, determined the appropriateness of sedation and have assessed the patient immediately prior to the procedure. All medicine(s) and interventions are by my order.
--- NOTE | 2024-03-02 08:54 | Cardiology Progress Note ---
Date of Service March 02, 2024 Assessment & Plan (1) Acute heart failure with reduced ejection fraction (HFrEF, <= 40%) and combined systolic and diastolic dysfunction: (2) HTN (hypertension): (3) Coronary artery calcification: (4) LV dysfunction: Plan 02/29/24: Patient has been a refuge from medical care for many years. Presented yesterday to outpatient clinic with HTN, s/s of acute CHF and abnormal EKG. Started on IV lasix 20 mg in ER with apparent brisk diuresis per admission noted. Urine outputs not measured. He received second dose IV lasix 20 mg this morning. Brisk diuresis reported. Will hold additional doses for now. Echo reviewed this morning and consistent with new onset HFrEF LVEF at 20-25%. Monitor I+O's. Daily weight with standing scale. Keep mag > 2.0 and potassium 4-5. Add spironolactone 12.5 mg daily Given cardiomyopathy, start GDMT. Lisinopril initiated upon admission at 10 mg. BP trending downward. Add metoprolol succinate 12.5 mg daily this PM. Will likely benefit from Entresto, however I'm not certain about insurance coverage - so will continue with BOBBY/ARB for now. Minimally elevated troponin and flat, consistent with CHF exacerbation. Not indicative of ACS. No chest pain. Underlying ischemic heart disease is likely with risk factors of HTN, untreated DM. Start ASA 81 mg daily and statin - crestor 20 mg daily. Once volume status has improved, would anticipate cardiac cath on Saturday. Needs DM management with A1C of 12.5. 03/01/24: Volume status improved since admission Stable labs today BP and HR well controlled Continue ASA, statin, lisinopril, metoprolol. NPO after midnight for possible cath tomorrow given severe LV dysfunction and cardiac risk factors. he had 5 beat run of VT during sleep. Outpatient sleep evaluation Would also recommend wearable defib -Assure device -on discharge given cardiomy opathy 03/02/2024: -Patient is euvolemic in exam. -Labs stable. -S/P Left heart catheterization which demonstrates Moderate non-obstructive coronary artery disease in major epicardial vessels (40-50% in mid RCA, 40-50% calcified early Mid-LAD at takeoff of D2, 40% diffuse mid-distal RCA), Severe small branch vessel disease (subtotal occlusion of small D3, 95% lateral branch of distal D2, 60-70% proximal right PLB) -HgB A1C 12.5. Needs aggressive mangement -Goal is to maximize medication therapies which will include the following: -Continue Toprol xl 12.5mg QAM, Crestor 20mg Daily, ASA 81mg Daily, Spironolactone 12.5mg daily. -Stop Lisinopril in favor of allowing for 48 hour wash out and start Entresto 26/24mg twice daily. -Start Jardiance 10mg daily for cardiac protective properties in the setting of NICM as well as start progression of diabetes management. A1C well above target greatly increasing his risk of a cardiac event. -When patient is appropriate for discharge, plan will be for close OP follow up as well as establish care with [facility] pharmacy for medication maximization in the setting of HF and Diabetes. -Plan for repeat echo at 3 month post cath and initiation of medication therapy. -Discussed the increased risk associated with HF with a reduced EF (20-25%) for lethal arrhythmias. Recommendation to pursue an external defibrillator/LIfeVest option. Patient is in agreement. -will complete forms to be faxed as well as will need this documentation, echocardiogram and cardiac cath report to attach. Case has been discussed with Dr. Reese. Further recommendations regarding plan of care as per his assessment. I spent a total of 30 minutes on the date of service in preparation, delivery, documentation of the care provided to the patient excluding any time spent in the performance of separately billed services. DERRICK [facility] Admission and Anticipated Discharge Date Admission Date: February 28, 2024 Supervising Physician Co-Signing Physician Notes Attending Attestation: Case reviewed with the advanced practitioner. I have personally performed a history and physical examination on the patient. I have reviewed the advanced practitioner's documentation on the date of service referenced in note, and I agree with, and take responsibility for the plan of care. Subjective: Pt seen in PCU after cardiac catheterization. Patient denies any chest pain or shortness of breath. Telemetry reveals SR in the 70-80s with rate isolated PVCs. Exam: Pulm: CTAB CV : regular rhythm, no murmurs, no edema R radial cath site clean , dry and intact Data: Echocardiogram images reviewed/interpreted independently: There is mild diffuse left ventricular hypokinesis, mild concentric left ventricular hypertrophy, severe left ventricular systolic dysfunction with ejection fraction in the range of 20-25%. Moderate left atrial enlargement present. Mild mitral regurgitation is present. Mild tricuspid regurgitation is present. Cardiac catheterization films reviewed with Dr. Winter of interventional cardiology, and the films were reviewed/interpreted independently: No high-grade obstruction to explain the severe left ventricular systolic dysfunction. Impression/ Plan: Acute on chronic heart failure with reduced ejection fraction, [place] Heart [employer] functional class III symptoms at present. Making clinical improvement as hospitalization progresses. Nonischemic cardiomyopathy Uncontrolled diabetes, hemoglobin A1c 12.5% * Diagnostics: add iron studies, serum , urine immunofixation, Andrew /lambda light chain levels (free) . * Therapeutics: Continue evidence-based beta-kamar, metoprolol succinate 12.5 mg daily, spironolactone 12.5 mg daily, and Jardiance 10 mg daily. Hold lisinopril for 36 hours in preparation for Entresto. * Patient agreeable to ASSURE wearable defibrillator pending repeat clinical and echocardiographic assessment after at least 3 months of medical therapy. Order on chart. * Remain in hospital today. I spent a total of 45 minutes coordinating, documenting, and providing care for this patient excluding time spent in the performance of separately billed services or time spent by another provider. Ronald Reese DO Subjective 03/02/2024: Patient seen and examined in follow up today. Feeling well. He has just returned from his cardiac catheterization. Denies any chest pain, pressure, palpitations, shortness of breath, PND, pre-syncope, syncope or edema. Right radial band in place, site C/D/I. Positive motor sensation and cap refill Labs, vitals, diagnostics, telemetry and documentation reviewed. Telemetry reviewed showing SR with occasional PVC rate 70-80s. Review of Systems Review of Systems: All systems reviewed & are unremarkable except as noted in HPI & below Physical Exam Constitutional: well developed and well nourished; no acute distress and not ill appearing Neck: normal visual inspection and trachea midline Respiratory: normal respiratory effort, lungs clear to auscultation Cardiovascular: Rate/Rhythm: regular rate and regular rhythm Heart Sounds: normal S1 and normal S2; no murmur Vessels: dorsalis pedis pulses present; no JVD Extremities: no edema Skin: no rashes, warm and dry (TR band in place right wrist. No bleeding or drainage ) Psychiatric: Orientation: alert and oriented x 3 Affect: + anxious affect Thought Process: goal directed thought process Results & Data Vital Signs (Past 12 Hours) Vital Signs Temp Pulse Pulse Pulse Resp BP Pulse Ox 03/02/24 08:14 74 74 14 129/89 96 03/02/24 07:17 36.4 C L 79 18 134/79 97 03/02/24 06:59 70 03/02/24 04:32 60 03/02/24 03:38 36.5 C 68 20 125/84 96 03/01/24 23:43 36.6 C 76 20 104/68 95 03/01/24 21:45 72 O2 Del Method 03/02/24 08:14 Room Air 03/02/24 07:17 Room Air 03/02/24 06:59 03/02/24 04:32 03/02/24 03:38 Room Air 03/01/24 23:43 Room Air 03/01/24 21:45 Laboratory Results Comprehensive Metabolic Panel 03/02/24 Range/Units 06:18 Sodium 139 (136-145) mmol/L Potassium 4.4 (3.5-5.1) mmol/L Chloride 105 (98-107) mmol/L Carbon Dioxide 26 (21-32) mmol/L BUN 20 (6-23) mg/dl Creatinine 1.02 (0.6-1.4) mg/dl Glucose 151 H (70-99(Fasting)) mg/dl Calcium 9.6 (8.6-10.3) mg/dl Intake and Output 03/01/24 03/02/24 03/02/24 22:59 06:59 14:59 Intake Total 200 / 500 Balance 200 / 500 Intake: Oral 200 / 500 Other: Other Intake Source npo Diagnostic Findings Echocardiogram 02/29/2024: LVEF 20-25% Diffuse hypokinesis LV systolic function is severely reduced Diastolic dysfunction is present due to low EF Mild concentric LVH Left ventricle mildly dilated mild MR Trace TR No evidence of pulmonary HTN
[2024-03-02] MEDS: fentaNYL citrate PF 100 MCG/2 ML VIAL ONE (09:03)
[2024-03-02] MEDS: HEPARIN (PORCINE) 1000 UNIT/ML 10 ML (CATH LAB USE ONLY) ONE (09:03)
[2024-03-02] MEDS: niCARdipine HCL INJ 2.5 MG/ML 10 ML AMP ONE (09:04)
[2024-03-02] MEDS: MIDAZOLAM HCL 1 MG/ML 2ML VIAL ONE (09:04)
[2024-03-02] MEDS: OPTIRAY 350 ONE (09:04)
--- NOTE | 2024-03-02 09:04 | Post Anesthesia Assessment ---
Date of Service March 02, 2024 Post Sedation Assessment Vital Signs Temp Pulse Pulse Pulse Resp BP Pulse Ox 03/02/24 08:14 74 74 14 129/89 96 03/02/24 07:17 97.5 F L 79 18 134/79 97 03/02/24 06:59 70 03/02/24 04:32 60 03/02/24 03:38 97.7 F 68 20 125/84 96 03/01/24 23:43 97.9 F 76 20 104/68 95 03/01/24 21:45 72 03/01/24 20:00 98.2 F 78 20 138/92 96 03/01/24 15:43 69 03/01/24 15:17 98.4 F 74 18 117/75 98 03/01/24 11:22 98.6 F 79 18 125/85 98 O2 Del Method 03/02/24 08:14 Room Air 03/02/24 07:17 Room Air 03/02/24 06:59 03/02/24 04:32 03/02/24 03:38 Room Air 03/01/24 23:43 Room Air 03/01/24 21:45 03/01/24 20:00 Room Air 03/01/24 15:43 03/01/24 15:17 Room Air 03/01/24 11:22 Room Air Recovery Score Activity: Moves 4 extremities Respiration: Deep Breath/Cough Circulation: +/-20% PreAnes Value Consciousness: Fully Awake Oxygen Saturation: O2 needed for >90% Discharge Sedation Level of Care: Fast Track Phase II Post Sedation Plan On clinical assessment, the patient appears to have tolerated the sedation without complications. Patient is recovering as anticipated. Patient will continue to be monitored by nursing and may be discharged when sedation discharge criteria are met per below protocol. Upon Completions of procedure up to 15 minutes continue every 5 minute vital signs and the P.A.R. score; then discharge to a Phase I or Fast Track to Phase II per the following guidelines: * Discharge Patient to appropriate Phase II area if PAR is 8 or greater or return to pre- procedure baseline. The post - procedure orders will be as directed. * If PAR score is less than 8 or not return to pre-procedure baseline then patient will follow Phase I monitoring till PAR is reached for Phase II. The Phase I may be done in procedure room or may call to secure a Phase I area. * If naloxone or flumazenil are used for reversal, hold in Phase I for continued monitoring from when last reversal dose was given for a minimum of 60 minutes or longer pending the nurse and/or physician discretion of patient condition before discharge to Phase II. Please call the Sedation Physician to re-evaluate and complete post-note for discharge to Phase II area. Do NOT discharge from procedure sedation or Phase 1 until post- sedation evaluation note is complete by procedure /sedation MD Sedation Discharge Instructions to be given to the patient at discharge to home.
[2024-03-02] MEDS: NITROGLYCERIN/D5W 100MCG/ML 20ML SYR ONE (09:05)
--- NOTE | 2024-03-02 09:11 | Cardiac Catheterization ---
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 Cardiac Status Clinical evaluation leading to the procedure CAD Presenation: Sx unlikely to be ischemic Diagnostic Physicians Name: Uriel Winter MD Closure Device Recommendations: Medical Therapy and/or Counseling Cardiac Cath Procedure Full Procedure Date March 02, 2024 Pre-Procedure Diagnosis Pre-Procedure Diagnosis: Cardiomyopathy AUC Score AUC Score: 7 Post-Procedure Diagnosis Post-Procedure Diagnosis: Moderate CAD Procedure(s) Performed Procedure(s) Performed: Coronary Angiography and Left Heart Cath Chemical Laboratory Scientist Uriel Winter MD Granite Countertop Installer(s) Aga Estimated Blood Loss Estimated Blood Loss: 5 Medication(s) Medication(s): Fentanyl, Heparin, Lidocaine 1%, Nitroglycerin and Versed Summary of Findings Indication: New cardiomyopathy, EF 20 to 25% Access: 6 Fr slender right radial artery Catheters: [place] Findings: LM -normal caliber, no significant disease LAD -large caliber, 20-30% proximal, calcified early-mid segment with 40-50% disease extending across D2 and calcified nodule just at D2 takeoff. Distal vessel without significant disease and wraps around apex. Large D2 widely patent with 95% ostial stenosis of lateral branch. Small D3 subtotally occluded. Circumflex -medium caliber, diffuse 40% mid to distal disease. Medium left PLB without significant disease. RCA -medium caliber, dominant, 40-50% mid segment disease. RPDA without significant disease. Terminal PLB with 60-70% proximal stenosis. LVEDP -15 Arterial Closure: TR band Summary: 1. Moderate nonobstructive coronary artery disease in major epicardial vessels -40 to 50% mid RCA 40-50% calcified earlymid LAD at takeoff of D2 40% diffuse mid to distal circumflex 2. Severe small branch vessel disease Subtotal occlusion small D3 95% lateral branch of distal D2 60-70% proximal right PLB 3. Normal intracardiac filling pressure Recommendations: Cardiomyopathy out of proportion to coronary artery disease. GDMT for NICM per Dr. Reese Continued ASCVD risk factor modification Hemodynamics Rest Ao:: 122/82/99 Final Ao: 101/60/76 LV: 101/15 Recommendations Recommendations: Medical Therapy and/or Counseling Specimens Specimens: None Radiation Exposure (mGy) 911 Contrast (mls) 85 Anesthesia Moderate [id number] Procedural Complication(s) None Disposition PCU I attest to the content of the Intraoperative Record and any orders documented therein. Any exceptions are noted below. [facility] Card Cath Procedure Codes Cardiac Catheterization Procedure 1: Cardiovascular Cath Procedures: 72352 Coronaries and LHC (+/-LV) Moderate Sedation Procedure 1: Sedation/Anesthesia: 18249 Mod Sedation by the same physician;Init15 Min Child Age 5 & Up Procedure 2: Sedation/Anesthesia: 38775 Mod Sedation by the same physician; Ea [id number] Minutes PG Care Time/CCT Total # of Minutes Spent Total Time Spent with Patient: Total time spent is greater than 50% in coordination of care (as documented) at patient's floor/unit and/or counseling patient:
[2024-03-02] MEDS: ASPIRIN 81 MG CHEW ONE (10:02)
[2024-03-02] MEDS: LANTUS PER UNIT CHARGE SC ONE (10:34)
[2024-03-02] MEDS: LANTUS PER UNIT CHARGE SC STA ×2 (11:04)
--- NOTE | 2024-03-02 12:26 | Pharmacy Report ---
Pharmacy Glycemic Short Note 2 - Date of Service March 02, 2024 - Glycemic Short BSG Results (Last 24 hours): 03/01/24 03/01/24 03/01/24 12:23 17:06 20:32 Glucose POC Glucose 150 H 168 H 114 H 03/02/24 03/02/24 03/02/24 06:18 07:58 09:49 Glucose 151 H POC Glucose 153 H 154 H 03/02/24 11:30 Glucose POC Glucose 128 H OUTPATIENT ANTIDIABETIC REGIMEN: * None * HbA1c = 12.5% on 02/29/24 ASSESSMENT: 03/02 * Patient required total of 48 units of insulin yesterday, of which 25 units were basal insulin * Fasting BSG 151 mg/dL, patient NPO this AM for cardiac cath - will reduce basal by ~25% this AM to account for NPO status * No change to CF/CR 02/28 * 68 y/o M admitted for acute exacerbation of Heart failure and fluid overload. Patient is an uncontrolled Type 2 diabetic. He was not on any anti-diabetic meds prior to admission. * Blood sugar on admission was 397 mg/dl. Novolog parameters ordered yesterday based on stress of 2. Basal Lantus 10 units given at HS. * Fasting BSG elevated this morning. Basal insulin dose increased to 20 units which is between a stress of 2 and 3. * Since pre-lunch BSG trended down into goal range, Novolog parameters loosened at dinner time today. PLAN FOR INPATIENT GLYCEMIC CONTROL: * Hold outpatient oral diabetes medications * Basal insulin * Lantus 18 units SQ x 1 (NPO today) * Bolus insulin * NovoLog per scale ACHS or Q6hrs while NPO * Goal Range: Low 110 mg/dL - High 140 mg/dL * Correction Factor: 15 mg/dL/unit * Nutritional / Prandial insulin per carb ratio of 1 unit per 7 grams CHO consumed
--- NOTE | 2024-03-02 14:19 | Hospitalist Progress Note ---
Date of Service March 02, 2024 Assessment & Plan (1) Acute heart failure with reduced ejection fraction (HFrEF, <= 40%) and combined systolic and diastolic dysfunction: (2) Demand ischemia of myocardium: (3) Non-ischemic cardiomyopathy: (4) Diabetes mellitus type 2 with complications: (5) Hypertension: Plan Patient with acute on chronic systolic congestive heart failure due to nonischemic cardiomyopathy as well as new diagnosis of uncontrolled diabetes mellitus type 2 Patient status post cardiac cath, continue post cath course as directed by cardiology Maximize goal-directed medical therapy for heart failure LifeVest consultation pending Continue insulin for diabetes management Patient may benefit from outpatient cardiac rehab' Admission and Anticipated Discharge Date Admission Date: February 28, 2024 Subjective Patient tolerated cardiac cath. No chest pain or shortness of breath. Recognizes that he will be on numerous medications. Received diabetic teaching, feels confident he will be able to give himself insulin Physical Exam Physical Exam: Constitutional: Alert HEENT: Mucous membranes moist. Lungs: Clear to auscultation, decreased, no wheezes rales or rhonchi CV: S1-S2, regular Abdomen: Soft, nontender, nondistended Extremities: No significant edema, wrist tourniquet in place post cath Neuro: No focal deficits Psych: Cooperative, normal mood Results & Data Results & Data Vital Signs (Past 12 Hours) Vital Signs Temp Pulse Pulse Pulse Resp BP Pulse Ox 03/02/24 11:58 36.7 C 76 18 132/90 94 03/02/24 11:30 71 24 03/02/24 11:18 79 21 03/02/24 11:00 77 23 03/02/24 10:45 62 13 03/02/24 10:33 67 14 03/02/24 10:18 72 16 03/02/24 10:00 36.8 C 70 126/85 03/02/24 09:25 72 18 120/74 94 03/02/24 09:10 68 18 119/74 94 03/02/24 08:14 74 74 14 129/89 96 03/02/24 07:17 36.4 C L 79 18 134/79 97 03/02/24 06:59 70 03/02/24 04:32 60 03/02/24 03:38 36.5 C 68 20 125/84 96 O2 Del Method 03/02/24 11:58 Room Air 03/02/24 11:30 10/07/24 11:18 03/02/24 11:00 03/02/24 10:45 03/02/24 10:33 03/02/24 10:18 03/02/24 10:00 03/02/24 09:25 Room Air 03/02/24 09:10 Room Air 03/02/24 08:14 Room Air 03/02/24 07:17 Room Air 03/02/24 06:59 03/02/24 04:32 03/02/24 03:38 Room Air Diagnostic Findings Reviewed imaging, laboratory and diagnostic studies. Pertinent findings as below. Reviewed cardiac cath report, moderate coronary artery disease no intervention. Glucose reviewed Electrolytes stable Iron studies within normal range (5) Hypertension Hypertension type: unspecified Qualified Code(s): I10 - Essential (primary) hypertension
--- NOTE | 2024-03-02 16:08 | Communication Note ---
Date of Service: March 02, 2024 Wearable defibrillator has been fitted. Remain in hospital and on telemetry for medication titration. Will need to determine affordability of Jardiance and Entresto prior to discharge.
[2024-03-03] MEDS: LORazepam 0.5 MG TAB PO PRN (05:31)
[2024-03-03 06:59] LABS: Hematocrit (blood only) 41.7 % (42.0-52.0); Hemoglobin 14.8 g/dl (14.0-18.0); Mean Corpuscular Hemoglobin 30.3 pg (25.0-34.0); Mean Corpuscular Hgb Conc 35.5 g/dL (32.0-36.0); Mean Corpuscular Volume 85.3 fL (80.0-100.0); Mean Platelet Volume 10.7 fL (9.4-12.4); Platelet Count 221 K/uL (130-400); RDW Coefficient of Variation 12.1 % (11.5-14.5); RDW Standard Deviation 37.8 fL (36.4-46.3); Red Blood Count 4.89 M/uL (4.70-6.10); White Blood Count 7.52 K/ul (4.8-10.8)
[2024-03-03 07:20] LABS: BUN Creatinine Ratio 22.1 (10-20); Calcium 9.3 mg/dl (8.6-10.3); Creatinine Clr Calc Pharmacy 87.6 ml/min; Magnesium 1.8 mg/dl (1.7-2.4); Potassium 3.8 mmol/L (3.5-5.1)
--- NOTE | 2024-03-03 08:21 | Cardiology Progress Note ---
Date of Service March 03, 2024 Assessment & Plan (1) Acute heart failure with reduced ejection fraction (HFrEF, <= 40%) and combined systolic and diastolic dysfunction: (2) CAD (coronary artery disease): (3) Non-ischemic cardiomyopathy: (4) HTN (hypertension): (5) Dyslipidemia: Plan 02/29/24: Patient has been a refuge from medical care for many years. Presented yesterday to outpatient clinic with HTN, s/s of acute CHF and abnormal EKG. Started on IV lasix 20 mg in ER with apparent brisk diuresis per admission noted. Urine outputs not measured. He received second dose IV lasix 20 mg this morning. Brisk diuresis reported. Will hold additional doses for now. Echo reviewed this morning and consistent with new onset HFrEF LVEF at 20-25%. Monitor I+O's. Daily weight with standing scale. Keep mag > 2.0 and potassium 4-5. Add spironolactone 12.5 mg daily Given cardiomyopathy, start GDMT. Lisinopril initiated upon admission at 10 mg. BP trending downward. Add metoprolol succinate 12.5 mg daily this PM. Will likely benefit from Entresto, however I'm not certain about insurance coverage - so will continue with BOBBY/ARB for now. Minimally elevated troponin and flat, consistent with CHF exacerbation. Not indicative of ACS. No chest pain. Underlying ischemic heart disease is likely with risk factors of HTN, untreated DM. Start ASA 81 mg daily and statin - crestor 20 mg daily. Once volume status has improved, would anticipate cardiac cath on Saturday. Needs DM management with A1C of 12.5. 03/01/24: Volume status improved since admission Stable labs today BP and HR well controlled Continue ASA, statin, lisinopril, metoprolol. NPO after midnight for possible cath tomorrow given severe LV dysfunction and cardiac risk factors. he had 5 beat run of VT during sleep. Outpatient sleep evaluation Would also recommend wearable defib -Assure device -on discharge given cardiomyopathy 03/02/2024: -Patient is euvolemic in exam. -Labs stable. -S/P Left heart catheterization which demonstrates Moderate non-obstructive coronary artery disease in major epicardial vessels (40-50% in mid RCA, 40-50% calcified early Mid-LAD at takeoff of D2, 40% diffuse mid-distal RCA), Severe small branch vessel disease (subtotal occlusion of small D3, 95% lateral branch of distal D2, 60-70% proximal right PLB) -HgB A1C 12.5. Needs aggressive mangement -Goal is to maximize medication therapies which will include the following: -Continue Toprol xl 12.5mg QAM, Crestor 20mg Daily, ASA 81mg Daily, Spironolactone 12.5mg daily. -Stop Lisinopril in favor of allowing for 48 hour wash out and start Entresto 26/24mg twice daily. -Start Jardiance 10mg daily for cardiac protective properties in the setting of NICM as well as start progression of diabetes management. A1C well above target greatly increasing his risk of a cardiac event. -When patient is appropriate for discharge, plan will be for close OP follow up as well as establish care with [facility] pharmacy for medication maximization in the setting of HF and Diabetes. -Plan for repeat echo at 3 month post cath and initiation of medication therapy. -Discussed the increased risk associated with HF with a reduced EF (20-25%) for lethal arrhythmias. Recommendation to pursue an external defibrillator/LIfeVest option. Patient is in agreement. -will complete forms to be faxed as well as will need this documentation, echocardiogram and cardiac cath report to attach. 03/03/2024: -Patient doing well from a cardiac perspective. -Euvolemic on exam. -discussed patient's current insurance and need for medication therapies. Plan at this time is to stop Entresto and start Losartan 25mg PO Daily. -Continue Toprol xl 12.5mg -Continue Spironolactone 12.5mg daily. -Stop crestor and switch to Simvastatin prior to discharge as this is on the [facility] $4.00/$9.00 list. -Will need to stop Jardiance, and recommend that patient be considered for other diabetes therapies per primary team prior to discharge due to cost affordability. -We have placed a [facility] clinical pharmacy referral to establish care and work on maximizing medication therapies as well as obtaining cost coverage upon discharge. -Enforce CHF teaching with less than 2000mg sodium daily and recommend daily weights. -Patient is stable from a cardiac perspective at this time and appropriate for discharge when ok with primary team. -Will need cardiology OP follow up within 3-4 weeks. Encouter sent to OP scheduling to arrange. Case has been discussed with Dr. Reese. Further recommendations regarding plan of care as per his assessment. I spent a total of 30 minutes on the date of service in preparation, delivery, documentation of the care provided to the patient excluding any time spent in the performance of separately billed services. DERRICK [place] [facility] Admission and Anticipated Discharge Date Admission Date: February 28, 2024 Supervising Physician Co-Signing Physician Notes Attending Attestation: Case reviewed with the advanced practitioner. I have personally performed a history and physical examination on the patient. I have reviewed the advanced practitioner's documentation on the date of service referenced in note, and I agree with, and take responsibility for the plan of care. Subjective: Denies chest pain or shortness of breath. Telemetry reveals SR in the 70s. Exam: Pulm: CTAB CV : regular rhythm, no murmurs, no edema R radial cath site clean , dry and intact Data: Echocardiogram images reviewed/interpreted independently: There is mild diffuse left ventricular hypokinesis, mild concentric left ventricular hypertrophy, severe left ventricular systolic dysfunction with ejection fraction in the range of 20-25%. Moderate left atrial enlargement present. Mild mitral regurgitation is present. Mild tricuspid regurgitation is present. Cardiac catheterization films from 03/02/[address] Winter of interventional cardiology, and the films were reviewed/interpreted independently: No high-grade obstruction to explain the severe left ventricular systolic dysfunction. 1. Moderate nonobstructive coronary artery disease in major epicardial vessels -40 to 50% mid RCA 40-50% calcified earlymid LAD at takeoff of D2 40% diffuse mid to distal circumflex 2. Severe small branch vessel disease Subtotal occlusion small D3 95% lateral branch of distal D2 60-70% proximal right PLB 3. Normal intracardiac filling pressure Impression/ Plan: Acute on chronic heart failure with reduced ejection fraction, [place] [employer] functional class III symptoms at presentation II at present. M Nonischemic cardiomyopathy (although CAD is present the degree of LV systolic dysfunction is out of proportion to the CAD with no culprits necessitating revascularization however medical Rx necessary) Uncontrolled diabetes, hemoglobin A1c 12.5% * Diagnostics: Fe studies normal urine immunofixation, Andrew /lambda light chain levels (free) obtained add lipid panel * Therapeutics: Patient without prescription coverage Change to medicaitons from [employer] $4 /$9 list as noted above. Clinical pharmacy consult as outpatient and can asses candidacy for assistance programs to allow for Entresto, and SGL2-2 inhibitor Patient agreeable to ASSURE wearable defibrillator pending repeat clinical and echocardiographic assessment after at least 3 months of medical therapy. Stable for discharge. Send medication orders to [facility] pharmacy. I spent a total of 25 minutes coordinating, documenting, and providing care for this patient excluding time spent in the performance of separately billed services or time spent by another provider. Ronald Reese, Subjective 03/03/2024: Patient seen and examined in follow up today. Feeling well. He denies any chest pain, pressure or palpitations. right wrist is clean/dry/intact, +pulses/motor sensation. He currently has the Assure wearable defibrillator in place. Labs, vitals, diagnostics, telemetry and documentation reviewed. Telemetry reviewed showing SR rates 60-70's Spoke with primary and CM reporting that patient does not have prescription coverage. will need to determine best course of action. Review of Systems Review of Systems: All systems reviewed & are unremarkable except as noted in HPI & below Physical Exam Constitutional: well developed and well nourished; no acute distress and not ill appearing Neck: normal visual inspection and trachea midline Respiratory: normal respiratory effort, lungs clear to auscultation Cardiovascular: Rate/Rhythm: regular rate and regular rhythm Heart Sounds: normal S1 and normal S2; no murmur Vessels: dorsalis pedis pulses present; no JVD Extremities: no edema Skin: no rashes, warm and dry (R wrist c/d/I, positive pulse/motor sensation) Psychiatric: Orientation: alert and oriented x 3 Affect: + anxious affect Thought Process: goal directed thought process Results & Data Vital Signs (Past 12 Hours) Vital Signs Temp Pulse Pulse Resp BP Pulse Ox O2 Del Method 03/03/24 07:43 36.3 C L 62 19 122/81 97 Room Air 03/03/24 07:27 74 03/03/24 04:16 36.7 C 68 18 126/90 98 Room Air 03/02/24 23:17 36.7 C 66 18 128/83 99 Room Air 03/02/24 23:00 57 L Laboratory Results CBC 03/03/24 Range/Units 06:04 WBC 7.52 (4.8-10.8) K/ul RBC 4.89 (4.70-6.10) M/uL Hgb 14.8 (14.0-18.0) g/dl Hct 41.7 L (42.0-52.0) % Plt Count 221 (130-400) K/uL Comprehensive Metabolic Panel 03/03/24 Range/Units 06:04 Sodium 137 (136-145) mmol/L Potassium 3.8 (3.5-5.1) mmol/L Chloride 106 (98-107) mmol/L Carbon Dioxide 23 (21-32) mmol/L BUN 19 (6-23) mg/dl Creatinine 0.86 (0.6-1.4) mg/dl Glucose 124 H (70-99(Fasting)) mg/dl Calcium 9.3 (8.6-10.3) mg/dl Intake and Output 03/02/24 03/03/24 03/03/24 22:59 06:59 14:59 Intake Total 480 / 840 Balance 480 / 840 Intake: Oral 480 / 840 Other: # Unmeasured Voids 1 Weight 84.9 kg
[2024-03-03] MEDS: EMPAGLIFLOZIN 10 MG TAB PO SCH (08:49)
[2024-03-03] MEDS: LOSARTAN POTASSIUM 25 MG TAB PO SCH (08:53)
[2024-03-03] MEDS: LANTUS PER UNIT CHARGE SC SCH (09:19)
[2024-03-03 11:28] VITALS: BP 117/70; PULSE 69; RESP 14; TEMP 97.9; O2SAT 96
--- NOTE | 2024-03-03 11:38 | Discharge Summary ---
Discharge Summary Date of Service March 03, 2024 Principal Dx & Hospital Course #1 = Principal Diagnosis (1) Acute heart failure with reduced ejection fraction (HFrEF, <= 40%) and combined systolic and diastolic dysfunction: (2) Demand ischemia of myocardium: (3) Non-ischemic cardiomyopathy: (4) Diabetes mellitus type 2 with complications: (5) Hypertension: (6) CAD (coronary artery disease): (7) Dyslipidemia: Plan Patient 68-year-old gentleman presented to the emergency room with increasing orthopnea dyspnea with exertion. Noted some edema in the lower extremities as well. In the emergency room had it elevated troponin and findings consistent with heart failure. Patient was admitted to the hospital. Given diuresis. Cardiology consultation was obtained. Echocardiogram showed severe cardiomyopathy ejection fraction 25%. She subsequently was taken to cardiac cath. Cardiac cath showed moderate coronary artery disease but no significant occlusion that required any intervention. Focus was then turned to getting him on goal-directed medical therapy for his heart failure. Patient was fitted with a LifeVest due to his high risk for fatal arrhythmia with his decreased ejection fraction. Patient did not have any prescription coverage and therefore was treated with medications that were affordable. Started on metoprolol succinate, losartan, Aldactone, aspirin. Patient also was diagnosed with diabetes. Hemoglobin A1c 12%. He received extensive diabetes education. Again working with his ability to pay for medications as recommended he be discharged home on metformin and once a day Lantus. On the day of discharge his glucoses are less than 150 and fairly well-controlled. Case management was involved in his care assisting him with obtaining his medications and finding the best possible costs for his multiple new medications. Patient was somewhat anxious about his generalized medical condition with all the new diagnosis and new medications. In the hospital he did receive some benzodiazepines. Will send him home with some hydroxyzine to help with his anxiety as needed and to help him with some sleep as he gets used to wearing the LifeVest. He will follow-up with cardiology and heart failure clinic outpatient. He may be a good candidate for cardiac rehab. He was comfortable giving himself the injections of Lantus. He was given education on diet and daily weights. He will follow-up with his PCP as well. Notes For Next Care Provider Will need ongoing evaluation for his heart failure and diabetes Monitor electrolytes and renal function Follow-up with cardiology and heart failure clinic as coordinated through their office May benefit from cardiac rehab Medication Changes From Visit All of the medications mentioned below are new Admission HPI Per Admitting Provider Patient is 68 year old male with PMH untreated HTN and DM II presented to ER for orthopnea x 2-3 weeks. History obtained from patint and outpatient chart review. Patient reports past 2-3 weeks been having orthopnea and PND. States sometimes wakes up from sleep with nonproductive cough as well. He noted very slight edema BLE. Denies dyspnea or CP or exertional CP. Has not followed with PCP for many years and has been without medications. Previously was on metformin and lisinopril. Patient reestablished with [facility] PCP today and was evaluated in clinic and was noted to have BP 158/112, P: 98, 97% on room air and was r ecommended ER for further evaluation. States sometimes will have one loose BM but is not consistent. Reports chronic shoulder, back and knee pain and uses OTC ibuprofen 3-5 days a week using 2-3 doses a day. Denies fever/chills, diaphoresis, N/V/C, melena, CLARKE, dizziness, syncope, vision changes, neck pain, CP, palpitations, cough, sore throat, otalgia, rhinorrhea, abdominal pain, paresthesias, weakness, rashes, urinary symptoms. Admission Exam Per Admitting Provider See H&P Discharge Exam Constitutional: Alert HEENT: Mucous membranes moist. Lungs: Clear to auscultation, decreased, no wheezes rales or rhonchi CV: S1-S2, regular Abdomen: Soft, nontender, nondistended Extremities: No significant edema Neuro: No focal deficits Psych: Cooperative, slightly anxious Updated Medication List Medication Instructions Recorded Confirmed Type aspirin 81 mg tablet,delayed 81 mg PO QAM 30 days #30 tabs 03/03/24 Rx release blood sugar diagnostic (OneTouch #100 ea 03/03/24 Rx Ultra Test strips) blood-glucose meter #1 ea 03/03/24 Rx hydroxyzine HCl 50 mg tablet 50 mg PO TID PRN anxiety #30 tabs 03/03/24 Rx insulin glargine 100 unit/mL (3 15 unit (0.15 mL) subcut QAM #15 mL 03/03/24 Rx mL) subcutaneous pen (Lantus Solostar U-100 Insulin) lancets 33 gauge #100 ea 03/03/24 Rx losartan 25 mg tablet 25 mg PO QAM 30 days #30 tabs 03/03/24 Rx metformin 500 mg tablet 500 mg PO BID #60 tabs 03/03/24 Rx metoprolol succinate 25 mg 12.5 mg (1/2 x 25 mg) PO QPM 30 03/03/24 Rx tablet,extended release 24 hr days #15 tabs pen needle, diabetic 33 gauge x #100 ea 03/03/24 Rx 5/32" simvastatin 40 mg tablet 40 mg PO HS #30 tabs 03/03/24 Rx spironolactone 25 mg tablet 12.5 mg (1/2 x 25 mg) PO DAILY 30 03/03/24 Rx days #15 tabs Hospital Stay Data Consultations 02/29/24 11:14 Consult Cardiology Routine Procedures Performed Operation Date: 03/02/24 08:00 Actual Procedures p Cineradiography w/Routine Exam - Uriel Winter MD p Cath, Left with Cors and Vent - Uriel Winter MD Diagnostic Imagining Performed 02/28/24 12:46 CT angio chest PE protocol Stat 03/02/24 07:10 CL Cath Imgs for PACS use only Routine Reviewed imaging, laboratory and diagnostic studies. Pertinent findings as below. Cardiac catheterization showed moderate three-vessel disease, I refer you to the full report for details Echocardiogram showed significant hypokinesis ejection fraction 25%, refer to the full report for details Hemoglobin 14.8 Electrolytes within normal limits Creatinine 0.86 Iron studies within normal range Hemoglobin A1c 12.5% Pending Results Patient Have Any Pending Studies at Discharge: No Discharge Instructions Given to Patient (Per Discharging Provider) Call 911 and go to the Emergency Room if: * You have tightness or pain in your chest that does not go away with rest or Nitroglycerin * You are very short of breath even with rest * You are shocked by your LifeVest Call your doctor if any of the following symptoms or problems start or get worse: * Shortness of breath or difficulty breathing * Wake up at night short of breath * Chest pain * Cough * Swelling of your hands, fee, or legs * More fatigued or tired with your normal activity * Palpitations - sudden fast heart beats WEIGHT * Weigh yourself every morning after using the bathroom. * Use the same scale. * Wear the same amount of clothing. * Write your weight down on your chart. * Call your doctor if you gain more than 2-3 pounds in 1-2 days. MEDICATIONS * Use this discharge instruction sheet for instructions. * Take your medications at the time your doctor ordered. * Do not skip a dose of your medicines. * If you miss a dose of medicine, take as soon as possible, but DO NOT DOUBLE A DOSE. * Read your medicine information when you get home. * Know all of the side effects of your medicine. * Call your doctor's office if you have any side effects. * Be sure all of your doctors know what medicine and herbs you take (including cold, flu, and herbal medicine). * Pain Medicine: If you do not get relief from your pain, please call your doctor for help. Take the following with you to your follow-up doctor appointments: * Weight Chart * Medication List * List of questions Do not drink excessive alcohol, beer or wine. Total Time Total Time Spent Total Time Spent (In Minutes): 47
[2024-03-03 12:15] LABS: Chol HDL Ratio 2.8 (0-5)
[2024-03-03 13:13] LABS: Free Kappa 20.9 mg/L (3.3-19.4); Free Kappa/Lambda Ratio 1.31 (0.26-1.65); Free Lambda 15.9 mg/L (5.7-26.3)
[2024-03-04] MEDS ORDERED: VALSARTAN/SACUBITRIL 26/24MG TAB PO SCH (09:00)
== END 2024-03-03 13:09 | disposition home or self-care (01) | DRG 286 ==
LOC: ED 11:08 → SUATTDRO 14:59 → 2W 14:59 → 2N 03-02 04:55 → 2E 03-02 09:42